=== PATIENT | female | born 1970 | race Caucasian/White ===

== ENCOUNTER 2017-06-19 23:43 | Emergency (ER) ==
[2017-06-20 00:01] VITALS: BP 165/96; TEMP 99.3; BMI 38.1
[2017-06-20] MEDS ORDERED: TRANDATE IVP STA (00:19)
[2017-06-20] MEDS ORDERED: ATIVAN IVP STA (00:20)
[2017-06-20 00:54] LABS: BASOPHILS # (AUTO) 0.1 K/uL (0-0.2); BASOPHILS % (AUTO) 0.7 % (0.0-3.0); EOSINOPHILS # (AUTO) 0.2 K/ul (0.0-0.7); EOSINOPHILS % (AUTO) 2.1 % (0.0-7.0); HEMATOCRIT 44.7 % (37.0-47.0); HEMOGLOBIN 15.7 g/dl (12.0-16.0); IMMATURE GRANULOCYTE % (AUTO) 0.4 % (0.0-5.0); LYMPHOCYTES # (AUTO) 2.5 K/uL (0.60-3.4); LYMPHOCYTES % (AUTO) 23.7 (10.0-50.0); MEAN CORPUSCULAR HEMOGLOBIN 30.8 pg (27.0-31.0); MEAN CORPUSCULAR HGB CONC 35.1 (31.8-35.4); MEAN CORPUSCULAR VOLUME 87.8 fl (81.0-99.0); MONOCYTES # (AUTO) 0.8 K/uL (0.4-2.0); MONOCYTES % (AUTO) 7.5 (0-10); NEUTROPHILS % (AUTO) 65.6; PLATELET COUNT 255 10^3/uL (140-440); RED BLOOD COUNT 5.09 10^6/ul (4.20-5.40); WHITE BLOOD COUNT 10.59 K/ul (4.6-10.2)
[2017-06-20 01:00] LABS: BILIRUBIN,URINE Negative (NEGATIVE); KETONES,URINE Negative (NEGATIVE); LEUKOCYTE ESTERASE ,URINE Negative (NEGATIVE); NITRITE,URINE Negative (NEGATIVE); PROTEIN,URINE Negative (NEGATIVE); URINE, BLOOD 2+ (NEGATIVE)
[2017-06-20 01:05] LABS: ADD URINE MICROSCOPIC YES
[2017-06-20 01:06] LABS: BACTERIA,URINE TRACE (NOT PRESENT)
--- NOTE | 2017-06-20 01:22 | CT ---
EXAM: CT head without contrast. HISTORY: Trauma. Elevated blood pressure. PROCEDURE: Contiguous axial CT images of the head without contrast with coronal and sagittal reforma ts. FINDINGS: There are bilateral earrings with associated artifact which limits the exam. The ventricle s and basal cisterns are normal in size and configuration. No evidence of mass or midline shift. No intracranial hemorrhage or evidence of large vessel infarct. No extra-axial fluid collection. The paranasal sinuses and mastoid air cells are well-aerated. Impression: Negative CT of the head.
[2017-06-20 01:32] LABS: ALANINE AMINOTRANSFERASE 19 U/L (12-78); ALBUMIN 3.2 g/dL (3.4-5.0); ALBUMIN/GLOBULIN RATIO 0.97; ALKALINE PHOSPHATASE 67 U/L (42-98); ANION GAP 14.5; ASPARTATE AMINO TRANSFERASE 13 U/L (15-37); BLOOD UREA NITROGEN 12 mg/dL (7-18); BUN/CREATININE RATIO 14.28; CARBON DIOXIDE 23 mmol/L (21-32); CHLORIDE 106 mmol/L (98-107); CREATINE KINASE 121 U/L; CREATININE 0.84 mg/dL (0.60-1.30); GLUCOSE 123 mg/dL (70-110); POTASSIUM 3.5 mmol/L (3.5-5.10); SODIUM 140 mmol/L (136-145); TOTAL PROTEIN 6.5 g/dL (6.4-8.2)
[2017-06-20 01:33] LABS: CREATINE KINASE MB 1.2 ng/ml (0.0-3.6)
--- NOTE | 2017-06-20 01:54 | ED.PDOC ---
General ED Provider: Dr. JASIEL LYNCH-ER Chief Complaint: Hypertension Stated Complaint: admits to anxiety-- oot and things going "wrong" around the house Time Seen by Physician: 23:50 Mode of Arrival: Walk-In Information Source: Patient, Family Exam Limitations: No limitations [facility] and Triage Documentation Reviewed and Agree: Yes Psychological Complaint Exam - Psychiatric Complaint/Exam Patient Complains Of: Present: Other Symptoms Are: Still present Timing: Constant Episodes Lasting: Seconds Initial Severity: Mild Current Severity: Moderate Character: Present: Fearful, Anxious Aggravating: Reports: Recent stress Associated Signs And Symptoms: Denies: Hostile, Confused, Hallucinating, Paranoid behavior, Sleep disturbance, Appetite change Completed Suicide Risk Factors: None Patient Accompanied By: Family Patient In Custody Of Police: No Social Withdrawal Present: No Social Isolation Present: No Prior Suicide Attempt: No Injury From Prior Suicide Attempt: No Related Surgical History: Reports: None Patient Uncooperative For Exam: No Mood: Present: Anxious Appearance: Present: Clean Thought Process: Present: Logical Insight: Present: Good Memory: Intact Judgement: Normal Danger To Others: No Patient Medically Stable For: Psych evaluation Differential Diagnoses: Anxiety Review of Systems - Review Of Systems Constitutional: Reports: No symptoms Eyes: Reports: No symptoms Ears, Nose, Mouth, Throat: Reports: No symptoms Respiratory: Reports: No symptoms Cardiac: Reports: No symptoms GI: Reports: No symptoms : Reports: No symptoms Musculoskeletal: Reports: No symptoms Skin: Reports: No symptoms Neurological: Reports: Anxiety Endocrine: Reports: No symptoms Hematologic/Lymphatic: Reports: No symptoms All Other Systems: Reviewed and Negative Past Medical History - Past Medical History Previously Healthy: Yes Endocrine: Reports: None Cardiovascular: Reports: None Respiratory: Reports: None Hematological: Reports: None Gastrointestinal: Reports: None Genitourinary: Reports: None Neuro/Psych: Reports: Anxiety Musculoskeletal: Reports: None Cancer: Reports: None Last Menstrual Period: 2014 hyst - Surgical History General Surgical History: Reports: Unknown - Family History Family History: Reports: Unknown - Social History Smoking Status: Current every day smoker, Heavy tobacco smoker Hx Substance Use: No Alcohol Screening: None Lives: With family - Immunizations Tetanus Shot up to Date: Yes Physical Exam - Physical Exam Appearance: Well-appearing Eyes: WIN ENT: Ears normal, Nose normal, Oropharynx normal Neck: Supple Respiratory: Airway patent, Breath sounds clear, Breath sounds equal, Respirations nonlabored Cardiovascular: RRR, Pulses normal, No rub, No murmur GI/: Soft, Nontender, No masses, Bowel sounds normal, No Organomegaly Musculoskeletal: Normal strength, ROM intact, No edema, No calf tenderness Skin: Warm, Dry, Normal color Neurological: Sensation intact Psychiatric: Affect appropriate, Mood appropriate, Anxious Interpretation - Radiology Interpretation Radiology Interpretation By: Radiologist Radiology Results: Negative Exam Interpreted: CT Scan - EKG Interpretation Time of EKG #1: 01:54 Rate: Normal Rhythm: Sinus Ectopy: None [place]: NL ST Segment: Normal Interpretation: nsr Re-Evaluation - Re-Evaluation Time of Re-Evaluation: 02:01 Status: Improved Vital Signs Stable: Yes Pain Level: 0 Appearance: NAD Lungs: Clear Skin: Warm and Dry Neuro: Alert and Oriented X3 CV: RRR Critical Care Note - Critical Care Note Total Time (mins): 0 Course - Course Hematology/Chemistry: 06/20/17 00:52 06/20/17 00:52 Orders, Labs, Meds: Lab Review 06/20/17 06/20/17 06/20/17 00:50 00:52 00:52 WBC 10.59 H RBC 5.09 Hgb 15.7 Hct 44.7 MCV 87.8 MCH 30.8 MCHC 35.1 RDW Coeff of Jeffrey 12.9 Plt Count 255 Immature Gran % (Auto) 0.4 Neut % (Auto) 65.6 Lymph % (Auto) 23.7 [place] % (Auto) 7.5 Eos % (Auto) 2.1 Baso % (Auto) 0.7 Immature Gran # (Auto) 0.0 Neut # 7.0 H Lymph # 2.5 [place] # 0.8 Eos # 0.2 Baso # 0.1 Sodium 140 Potassium 3.5 Chloride 106 Carbon Dioxide 23 Anion Gap 14.5 BUN 12 Creatinine 0.84 Estimated GFR (MDRD) 73.00 BUN/Creatinine Ratio 14.28 Glucose 123 H Calcium 9.0 Total Bilirubin 0.30 AST 13 L ALT 19 Alkaline Phosphatase 67 Total Creatine Kinase 121 CK-MB (CK-2) 1.2 CK-MB (CK-2) % 0.09529 Troponin I < 0.0100 Total Protein 6.5 Albumin 3.2 L Globulin 3.3 Albumin/Globulin Ratio 0.97 TSH 1.511 Free T4 0.98 Urine Color Yellow Urine Clarity Clear Urine pH 6.0 Ur Specific [place] 1.015 Urine Protein Negative Urine Glucose (UA) Negative Urine Ketones Negative Urine Blood 2+ Urine Nitrite Negative Urine Bilirubin Negative Urine Urobilinogen 0.2 Ur Leukocyte Esterase Negative Urine Microscopic RBC 5-10 Ur Squamous Epith Cells 2-5 Urine Bacteria Trace Orders Category Date Time Status EKG-(ED ONLY) Stat CARDIO 06/20/17 00:18 Ordered Orthotist Prosthetist [ED SOCKET PULLER APPLIED] .ONCE EMERGENCY 06/20/17 00:19 Active IV [ED IV/MEDIPORT/POWERPORT] .ONCE EMERGENCY 06/20/17 00:19 Active CBC W/ AUTO DIFF Stat LAB 06/20/17 00:52 Completed COMPREHENSIVE METABOLIC PANEL Stat LAB 06/20/17 00:52 Completed CREATINE KINASE Stat LAB 06/20/17 00:52 Completed FREE T4 (FREE THYROXINE) Stat LAB 06/20/17 00:52 Completed TROPONIN I Stat LAB 06/20/17 00:52 Completed TSH [THYROID STIMULATING HORMONE] Stat LAB 06/20/17 00:52 Completed URINALYSIS C & S IF INDICATED Stat LAB 06/20/17 00:50 Completed 0.9 % Sodium Chloride [Saline Flush] MEDS 06/20/17 00:19 Ordered 1 syr IVF PRN PRN Labetalol HCl [Trandate] MEDS 06/20/17 00:19 Discontinued 20 mg IVP ONCE STA Lorazepam Inj [Ativan] MEDS 06/20/17 00:20 Discontinued 1 mg IVP ONCE STA CT HEAD W/O CONTRAST Stat RADS 06/20/17 00:19 Completed Medications Generic Name Dose Route Start Last Admin Trade Name Freq PRN Reason Stop Dose Admin Sodium Chloride 1 syr 06/20/17 00:19 06/20/17 00:54 Saline Flush IVF 1 syr PRN PRN Administration To flush IV Discontinued Medications Generic Name Dose Route Start Last Admin Trade Name Freq PRN Reason Stop Dose Admin Labetalol HCl 20 mg 06/20/17 00:19 06/20/17 00:54 Trandate IVP 06/20/17 00:20 20 mg ONCE STA Administration Lorazepam 1 mg 06/20/17 00:20 06/20/17 00:54 Ativan IVP 06/20/17 00:21 1 mg ONCE STA Administration Vital Signs: Temp Pulse Resp BP Pulse Ox 06/19/17 23:46 99.3 F 89 20 165/96 H 97 Departure - Departure Time of Disposition: 02:01 Disposition: HOME SELF-CARE Discharge Problem: Anxiety, Hematuria Instructions: Anxiety (ED) Condition: Good Pt referred to PMD for follow-up: Yes Additional Instructions: ativan 1mg q 6hrs prn anxiety#15--see your pcp about the blood in the urine-- very important this is done Allergies/Adverse Reactions: Allergies No Known Allergies Allergy (Verified 06/19/17 23:56) Home Medications: Ambulatory Orders 1 [No Reported Medications] 06/19/17 Disposition Discussed With: Patient, Family Discharge Problem: Hematuria Qualifiers: Hematuria type: unspecified type Qualified Code(s): R31.9 - Hematuria, unspecified
== END 2017-06-20 02:12 | disposition home or self-care (01) ==
LOC: ED 23:43
DX: F41.9 Anxiety disorder, unspecified (principal); R31.9 Hematuria, unspecified; I10 Essential (primary) hypertension; F17.210 Nicotine dependence, cigarettes, uncomplicated
CPT/HCPCS: 36415; 80053; 81001; 82550; 82553; 84439; 84443; 84484; 85025; 93005; 93010; 96374; 96375; 99284

== ENCOUNTER 2018-04-14 00:39 | Observation (INO) ==
[2018-04-14 00:56] VITALS: BMI 40.4
[2018-04-14] MEDS ORDERED: ZOFRAN 4 MG/2 ML IVP STA (01:16)
[2018-04-14] MEDS ORDERED: DILAUDID 2 MG/ML SYRINGE ONE (01:26)
[2018-04-14] MEDS: DILAUDID 2 MG/ML SDV IVP PRN ×4 (01:35→08:28)
--- NOTE | 2018-04-14 02:49 | ED.PDOC ---
General ED Provider: Dr. JASIEL LYNCH-ER Chief Complaint: Back Pain Stated Complaint: my lower back is killing me Time Seen by Physician: 00:45 Mode of Arrival: Walk-In Information Source: Patient, Family Exam Limitations: No limitations [facility] and T[facility] Documentation Reviewed and Agree: Yes Does patient meet sepsis criteria?: No System Inflammatory Response Syndrome: Not Applicable Sepsis Protocol: For patient's 13 years and over: Temp is 96.8 and below OR 101 and greater Pulse >90 BPM Resp >20/minute Acutely Altered Mental Status Are patient's symptoms suggestive of a new infection, such as: -Pneumonia -Skin, Soft Tissue -Endocarditis -UTI -Bone, Joint Infection -Implantable Device -Acute Abdominal Infection -Wound Infection -Meningitis -Blood Stream Catheter Infection -Unknown Musculoskeletal Complaint Exam - Back Pain Complaint/Exam Mechanism of Injury: Reports: No known trauma Onset/Duration: several days Symptoms Are: Still present Timing: Constant Episodes Lasting: Days Initial Severity: Moderate Current Severity: Moderate Location: Reports: Discrete Character: Reports: Dull, Aching Aggravating: Reports: Movements, Lifting, Bending, Walking Alleviating: Reports: None Associated Signs and Symptoms: Reports: Abdominal pain, Flank pain Epidural Abcess Risk Factors: Reports: None Related Surgical History: Reports: None Focal Tenderness: Yes Paraspinal Muscle Tenderness: No Paraspinal Muscle Spasm: No Scoliosis: No Lordosis: No Kyphosis: No SLR Test: Right Negative, Left Negative Hip Motion Testing Pain: Right Negative, Left Negative Focal Weakness: Present: None Focal Sensory Loss: Present: None Gait: Present: Abnormal Differential Diagnoses: Herniated Disk, Renal Colic Review of Systems - Review Of Systems Constitutional: Reports: No symptoms Eyes: Reports: No symptoms Ears, Nose, Mouth, Throat: Reports: No symptoms Respiratory: Reports: No symptoms Cardiac: Reports: No symptoms GI: Reports: No symptoms : Reports: Flank pain Musculoskeletal: Reports: Back pain Skin: Reports: No symptoms Neurological: Reports: No symptoms Endocrine: Reports: No symptoms Hematologic/Lymphatic: Reports: No symptoms All Other Systems: Reviewed and Negative Past Medical History - Past Medical History Previously Healthy: Yes Endocrine: Reports: None Cardiovascular: Reports: None Respiratory: Reports: None Hematological: Reports: None Gastrointestinal: Reports: None Genitourinary: Reports: None Neuro/Psych: Reports: Anxiety Musculoskeletal: Reports: None Cancer: Reports: None Last Menstrual Period: HYSTERECTOMY 2013 - Surgical History General Surgical History: Reports: Unknown - Family History Family History: Reports: Unknown - Social History Smoking Status: Current every day smoker, Heavy tobacco smoker Hx Substance Use: No Alcohol Screening: None - Immunizations Tetanus Shot up to Date: Yes Physical Exam - Physical Exam Appearance: Well-appearing, No pain distress, Well-nourished Eyes: WIN, EOMI, Conjunctiva clear ENT: Ears normal, Nose normal, Oropharynx normal Neck: Supple Respiratory: Airway patent, Breath sounds clear, Breath sounds equal, Respirations nonlabored Cardiovascular: RRR GI/: Soft, Nontender, No masses, Bowel sounds normal, No Organomegaly Musculoskeletal: Normal strength Skin: Warm Neurological: Sensation intact Psychiatric: Affect appropriate, Mood appropriate, Anxious Interpretation - Radiology Interpretation Radiology Interpretation By: Radiologist Radiology Results: Negative Exam Interpreted: CT Scan - EKG Interpretation Time of EKG #1: 02:50 Rate: Normal Rhythm: Sinus Ectopy: None [place]: NL ST Segment: Normal Interpretation: nsr Physician Notification - Case Discussed Physician Notified: dr [email or web address] Time of Notification: 03:56 Critical Care Note - Critical Care Note Total Time (mins): 0 Course - Course Hematology/Chemistry: 04/14/18 01:25 04/14/18 01:25 Orders, Labs, Meds: Lab Review 04/14/18 04/14/18 04/14/18 01:25 01:25 02:40 WBC 13.08 H RBC 5.15 Hgb 15.9 Hct 45.4 MCV 88.2 MCH 30.9 MCHC 35.0 RDW Coeff of [place] 13.3 Plt Count 303 Immature Gran % (Auto) 0.5 Neut % (Auto) 77.3 Lymph % (Auto) 12.8 [place] % (Auto) 7.4 Eos % (Auto) 1.5 Baso % (Auto) 0.5 Immature Gran # (Auto) 0.1 Neut # (Auto) 10.1 H Lymph # (Auto) 1.7 [place] # (Auto) 1.0 Eos # (Auto) 0.2 Baso # (Auto) 0.1 Sodium 135 L Potassium 4.1 Chloride 99 Carbon Dioxide 25 Anion Gap 15.1 BUN 13 Creatinine 0.84 Estimated GFR (MDRD) 73.00 BUN/Creatinine Ratio 15.47 Glucose 155 H Calcium 9.2 Total Bilirubin 0.5 AST 29 ALT 44 Alkaline Phosphatase 67 Total Protein 7.4 Albumin 3.6 Globulin 3.8 Albumin/Globulin Ratio 0.95 Amylase 22 L Lipase 18 Urine Color Yellow Urine Clarity Clear Urine pH 6.5 Ur Specific [place] 1.020 Urine Protein Negative Urine Glucose (UA) Negative Urine Ketones Negative Urine Blood 1+ Urine Nitrite Negative Urine Bilirubin Negative Urine Urobilinogen 0.2 Ur Leukocyte Esterase Negative Urine Microscopic RBC 2-5 Ur Squamous Epith Cells 10-20 Orders Category Date Time Status EKG-(ED ONLY) Stat CARDIO 04/14/18 01:14 Completed IV [ED IV/MEDIPORT/POWERPORT] .ONCE EMERGENCY 04/14/18 01:14 Active AMYLASE Stat LAB 04/14/18 01:25 Completed CBC W/ AUTO DIFF Stat LAB 04/14/18 01:25 Completed COMPREHENSIVE METABOLIC PANEL Stat LAB 04/14/18 01:25 Completed LIPASE Stat LAB 04/14/18 01:25 Completed URINALYSIS C & S IF INDICATED Stat LAB 04/14/18 02:40 Completed 0.9 % Sodium Chloride [Saline Flush] MEDS 04/14/18 01:14 Ordered 1 syr IVF PRN PRN Hydromorphone HCl [Dilaudid 0.5 mg/0.5 ml Syringe] MEDS 04/14/18 03:03 Discontinued 1 mg .ROUTE .STK-MED ONE Hydromorphone HCl [Dilaudid 2 mg/ml Sdv] MEDS 04/14/18 01:16 Ordered 1 mg IVP Q1HR PRN Hydromorphone HCl/Pf [Dilaudid 2 mg/ml Syringe] MEDS 04/14/18 01:26 Discontinued 2 mg .ROUTE .STK-MED ONE Ondansetron HCl/Pf [Zofran 4 mg/2 ml] MEDS 04/14/18 01:16 Discontinued 4 mg IVP ONCE STA CT ABDOMEN/PELVIS WO CONTRAST Stat RADS 04/14/18 01:[address] LUMBAR SPINE W/O CONTRAST Stat RADS 04/14/18 01:15 Completed Medications Generic Name Dose Route Start Last Admin Trade Name Freq PRN Reason Stop Dose Admin Hydromorphone HCl 1 mg 04/14/18 01:16 04/14/18 03:06 Dilaudid 2 Mg/Ml Sdv IVP 1 mg Q1HR PRN Administration Abdominal Pain Sodium Chloride 1 syr 08/20/18 01:14 Saline Flush IVF PRN PRN To flush IV Discontinued Medications Generic Name Dose Route Start Last Admin Trade Name Dmitry PRN Reason Stop Dose Admin Ondansetron HCl 4 mg 04/14/18 01:16 04/14/18 01:35 Zofran 4 Mg/2 Ml IVP 04/14/18 01:17 4 mg ONCE STA Administration Vital Signs: Temp Pulse Resp BP Pulse Ox 04/14/18 00:40 98.1 F 86 24 167/102 H 98 Departure - Departure Time of Disposition: 03:56 Disposition: PLACED OBSERVATION Discharge Problem: Low back pain potentially associated with radiculopathy Instructions: Lumbar Radiculopathy (ED) Condition: Good Pt referred to PMD for follow-up: Yes IPMP verified?: No Allergies/Adverse Reactions: Allergies No Known Allergies Allergy (Verified 04/14/18 00:56) Home Medications: Ambulatory Orders Cyclobenzaprine HCl [Flexeril] 10 mg PO DAILY PRN 04/14/18 Lisinopril/Hydrochlorothiazide [Lisinopril-Hctz 10-12.5 mg Tab] 10 - 12.5 mg PO DAILY 04/14/18 Meloxicam 15 mg PO DAILY 04/14/18 Prednisone 10 mg PO DAILY 04/14/18 Transfer Form Completed: No Disposition Discussed With: Patient, Family
[2018-04-14] MEDS ORDERED: DILAUDID 0.5 MG/0.5 ML SYRINGE ONE (03:03)
--- NOTE | 2018-04-14 03:12 | CT ---
Exam: CT of the abdomen and pelvis without contrast History: Left-sided abdomen and back pain Technique: [address] of the abdomen and pelvis without intravascular contrast FINDINGS: The lung bases show bilateral dependent atelectasis. No significant liver abnormality. The adrenals, pancreas and spleen are unremarkable. The stomach and hiatus are unremarkable.Prior cholec ystectomy. Kidneys and proximal collecting system are unremarkable. The appendix is normal. Bowel loo ps demonstrate normal caliber. No inflamatory change seen in the mesentery or retroperitoneum. Vascul ar structures appear normal by noncontrast CT. Fat containing umbilical hernia without complication. Abdominal wall defect measuring 1.4 cm. Colonic diverticulosis of the sigmoid. No pelvic fat inflammation. Multiple cysts of the left ovary . Prior hysterectomy. Normal urinary bladder. Contrast accumulation in the urinary bladder from a prior study which is unavailable. No acute findings of the skeleton. Impression: 1. No inflammatory process, bowel or urinary obstruction is seen. 2. Colonic diverticulosis without acute diverticulitis
--- NOTE | 2018-04-14 03:16 | CT ---
Exam: CT lumbar spine without contrast History: Abdomen and back pain Technique: [address] of the lumbar spine with multiplanar reformations FINDINGS: Lumbar spine shows normal alignment. Vertebral body height is maintained. No fracture li cesilia or suspicious bony lesions. No immediate paravertebral soft tissue abnormalities. The sacrum is intact. T12-L1: Normal L1-L2: Normal L2-L3: Normal L3-L4: Normal L4-L5: Facet arthropathy change without central canal narrowing. Mild right foraminal narrowing. N o left foraminal narrowing. L5 S1: Facet arthropathy changes without central canal narrowing no foraminal stenosis. Impression: 1. Low grade degenerative change of the lumbar spine. No acute abnormalities.
[2018-04-14] MEDS ORDERED: MORPHINE 2 MG/ML SYRINGE IVP PRN (04:03)
[2018-04-14] MEDS ORDERED: ZOFRAN 4 MG/2 ML IVP PRN (04:03)
[2018-04-14] MEDS: DECADRON 4 MG/ML SDV IVP SCH ×3 (05:13→22:13)
[2018-04-14] MEDS: SODIUM CHLORIDE 1,000 ML IV SCH ×2 (05:13→22:04)
[2018-04-14] MEDS: LOVENOX SUBCUT SCH (08:35)
[2018-04-14] MEDS: HYDROCHLOROTHIAZIDE PO SCH (08:36)
[2018-04-14] MEDS: ZESTRIL PO SCH (08:36)
[2018-04-14] MEDS: MOBIC PO SCH (08:37)
[2018-04-14] MEDS: FLEXERIL PO PRN (08:37)
[2018-04-14] MEDS ORDERED: DILAUDID 2 MG/ML SDV IVP PRN (08:42)
[2018-04-14] MEDS ORDERED: NON-FORMULARY MEDICATION (Meloxicam [Meloxicam] 15 MG) PO SCH (09:00)
[2018-04-14] MEDS: NICODERM 21 MG TD SCH (11:34)
[2018-04-14] MEDS: TORADOL IVP SCH ×3 (11:35→17:39)
--- NOTE | 2018-04-14 12:27 | MRI ---
EXAM: Lumbar spine MRI without contrast. HISTORY: Low back pain with radiculopathy. COMPARISON: Lumbar spine CT scan 04/14/2018. TECHNIQUE: Multiplanar, multisequence MR images were acquired lumbar spine without contrast. FINDINGS: Conus medullaris ends at L1 and has normal morphology and signal intensity. The lumbar ve rtebra are normal in height, AP alignment and intrinsic bone marrow signal. A small well circumscrib ed bright T1 and T2, dark STIR stippled lesion is present in the right L2 vertebra, most consistent w ith a benign intraosseous hemangioma. Benign intraosseous hemangiomas are also present in the right iliac bone and first sacral segment. There is minor lumbar ventral spondylosis with minor modic type 2 changes along the left anterolateral inferior endplate of L1 and along the anterior superior endpl ates of L3, L4 and L5. There is mild disc space narrowing and disc desiccation at L5-S1. The partially visualized liver, spleen, adrenal glands and kidneys are unremarkable. There are no pa ravertebral masses. L1-2: The intervertebral disc is normal. L2-3: The intervertebral disc is normal. L3-4: The intervertebral disc is normal. There is a small synovial cyst along the posterior inferior left facet joint. L4-5: There is a minor disc bulge that is asymmetric to the left which minimally narrows the inferio r left neural foramen and mild bilateral hypertrophic facet arthropathy and ligamentum flavum hypertr ophy. There is no central canal stenosis. L5-S1: There is a minor posterior disc bulge with a small more focal central component or small cent ral disc protrusion and focal faint bright T1 and T2 signal annular calcification or ossification. T here is mild bilateral hypertrophic facet arthropathy and ligamentum flavum hypertrophy, greater on t he right. There is no central canal stenosis or foraminal stenosis. IMPRESSION: 1. Mild lower lumbar hypertrophic facet arthropathy and small posterior disc bulge L5-S1 with more f ocal central component or small disc protrusion. 2. No pars interarticularis defects, central canal stenosis or significant foraminal stenosis.
--- NOTE | 2018-04-14 14:41 | MRI ---
EXAM: Thoracic spine MRI without contrast. HISTORY: Thoracic spine pain. COMPARISON: Lumbar spine MRI 04/14/2018. TECHNIQUE: Multiplanar, multisequence MR images were acquired of the thoracic spine without contrast . FINDINGS: The thoracic cord has normal morphology and no syrinx. No abnormal areas of bright STIR s ignal are identified. However, there is decreased spatial contrast resolution of subtle STIR signal abnormalities in the cord may be missed. A 12 rib-bearing thoracic vertebra are present. The thorac ic vertebra are generally normal in height, AP alignment and intrinsic bone marrow signal. At T9, th ere is a mildly lobular hyperintense T1 and T2, dark STIR signal 9 mm AP by 5 mm TX by 11 mm CC lesio n in the right vertebral body that extends to the superior endplate. The appearance is nonspecific a nd is most consistent with a nonaggressive primary osseous lesion. Canal diameter is developmentally normal. However, there is mildly prominent dorsal epidural fat from T3-4 to T8-9. There is degenera tive spondylosis of the cervical spine. The partially visualized liver, spleen, adrenal glands and upper poles of both kidneys are unremarkab le. T1-2, T2-3, T3-4, T4-5, T5-6: The intervertebral discs are normal. There is no central canal stenos is or foraminal stenosis. T6-7: There is a minor left paracentral bony ridge and ventral spondylosis with modic type 1 anterio r endplate changes. There is no central canal stenosis or foraminal stenosis. T7-8: There is a minor left dorsal spondylotic ridge with a more focal left paracentral component th at mildly indents the left ventral cord. On the axial sections, there is a possible small left parac entral disc protrusion. There is no central canal stenosis or foraminal stenosis. T8-9: There is a minor posterior disc bulge that is asymmetric to the left. There is no central can al stenosis or foraminal stenosis. T9-10, T10-11, T11-12, T12-L1: The intervertebral discs are normal. There is no central canal steno sis or foraminal stenosis. IMPRESSION: 1. Mild thoracic degenerative spondylosis. 2. No acute thoracic fractures or central canal stenosis.
--- NOTE | 2018-04-14 14:55 | RS.PTINEVL ---
Subjective - Patient information Date of Evaluation: 04/14/18 Date of Arrival on Unit: 04/14/18 Admitted From:: Home Diagnosis: low back pain with radiculopathy Usual Living Arrangement: With Others Living Arrangement Comments: Currently going through a divorce; 3 adult children living at home with patient Home Environment: House, Stairs (few) Medical History Comments:: anxiety Surgical History: Hysterectomy Medications: see chart Subjective Information/ Patient Comments:: pt initially states she has pain across top of shlds as well as across low back. Later in eval pt states only has pain in L lower thoracic spine then states is in center of spine in mid thoracic spine. - Level of function Prior to this admission, the patient could do the following:: Independent Selfcare, Independent ADL's, Independent Ambulation, Drive Current Level of Function: Independent Current Equipment Used at Home: none Pain Assessement - Location thoracic spine Description: Aching Intensity: 7 Pain Behavior: Facial Grimacing Pain Aggravating Factors: Changing Position, Exercise/Activity, Standing, Walking, Stair Climbing Pain Alleviating Factors: Medication Interventions - Objective Patient Orientation: Person, Place, Time, Situation Current Interventions: IV's Observation: pt seen lying sup in bed. Range of Motion - ROM Right Upper Extremity AROM: WFL's Left Upper Extremity AROM: WFL's Right Lower Extremity AROM: WFL's Left Lower Extremity AROM: WFL's Muscle Strength - Muscle Strength Right Upper Extremity Strength: Mild Weakness (BUE 4+/5) Left Upper Extremity Strength: Mild Weakness (BUE 4+/5) Right Lower Extremity Strength: Mild Weakness (hip flex 4+/5, knee flex/ext 5/5 , ankle Df/PF 5/5) Left Lower Extremity Strength: Mild Weakness (hip flex 4+/5, knee flex/ext 5/5, ankle Df/PF 5/5) Sensation - Sensation Right Upper Extremity Sensation: Impaired Left Upper Extremity Sensation: Impaired Right Lower Extremity Sensation: Intact/Normal Left Lower Extremity Sensation: Intact/Normal Comments: reports n/t B hands Palpation Palpation Findings: Tenderness Comments:: tenderness noted in mid thoracic spine, no definite trigger points noted. Balance - Sitting Balance and Reactions Static Sitting Balance: Normal Dynamic Sitting Balance: Normal - Standing Balance and Reactions Static Standing Balance: Normal Dynamic Standing Balance: Normal Functional Mobility - Bed Mobility Rolling R/L: Independent Scooting: Independent Supine to Sit: Independent Sit to Supine: Independent - Transfers Sit to Stand: Supervision Stand to Sit: Supervision - Safety Awareness Safety Awareness: Good VANCE INDEX SCORE: n/a Ambulation - Ambulation Assistive Device Used: Gait belt Orthotic/Prosthetic Device: No Distance: 30ft Assistance needed with Ambulation: Independent Gait Deviations: No Deviations/Normal Ambulation Comments: pt amb with no LOB without AD. Factors Affecting Ambulation: Pain Treatment time - Time with patient Length of Evaluation: 24 Total treatment time: 24 Patient Education - Education Patient Education: Activity Modification, Education of Plan of Care Teaching Recipient: Patient Teaching Methods: Discussion Comments: discussion with patient regarding posture, and POC. Assessment - Assessment Problem List:: Requires training/education, Decreased safety/Risk of falls, Weakness, Pain limits previous level of function Rehab Potential: Good Further Therapy Indicated?: Yes Candidate for Swing Bed for Therapy Services?: pt not a candidate for swing bed Evaluation Complexity: HISTORY: Low (LBP), EXAM OF BODY SYSTEMS: Low (pain, strength), CLINICAL PRESENTATION: Low, CLINICAL DECISION MAKING: Low Short Term Goals GOAL #1: pt independent with HEP Goal to be met by: 04/15/18 GOAL #2: pt with pain < 7/10 at rest Goal to be met by: 04/15/18 Shelter Goals GOAL #1: pt with pain <7/10 with activity Goal to be met by: 04/15/18 Plan Plan of Care: Therapeutic EX Modalities: Cold Pack/Cryotherapy, Ultrasound, Electrical Stimulation Frequency of Treatment: 1-2 X day, as tolerated Duration of Treatment: 1-2 days Anticipated Discharge Destination: Home Treatment Diagnosis (ICD 10 Codes): thoracic pain M54.6. lumbar pain M 54.5 Has the Physician been added for Co-signature?: Yes
[2018-04-15] MEDS: TORADOL IVP SCH ×3 (01:15→13:33)
[2018-04-15] MEDS: FLEXERIL PO PRN (04:12)
[2018-04-15] MEDS: DECADRON 4 MG/ML SDV IVP SCH ×2 (04:41→13:33)
[2018-04-15] MEDS: HYDROCHLOROTHIAZIDE PO SCH (08:40)
[2018-04-15] MEDS: NICODERM 21 MG TD SCH (08:41)
[2018-04-15] MEDS: MOBIC PO SCH (08:41)
[2018-04-15] MEDS: ZESTRIL PO SCH (08:41)
[2018-04-15] MEDS: LOVENOX SUBCUT SCH (08:44)
[2018-04-15 14:18] VITALS: BP 142/88; TEMP 97.5
--- NOTE | 2018-04-15 14:53 | MRI ---
EXAM: MRI brain without and with IV contrast. DATE: 15 April 2018. HISTORY: Tingling in the upper and lower extremities. TECHNIQUE: Sagittal T1W pre and postcontrast, axial T2W, axial FLAIR, axial T1W pre and postcontrast , axial DWI, coronal T1W postcontrast, and coronal T2W GRE sequences of the brain were obtained using 1.2 Jannie magnet. CONTRAST: Omniscan - 20 ml IV. COMPARISON: CT head 20 June 2017. FINDINGS: The ventricles, cisterns, and subarachnoid spaces are normal in size and configuration. N o midline shift, mass effect or abnormal extra-axial fluid collection is apparent. No acute infarct, hemorrhage or enhancing neoplasm is identified. No abnormal contrast enhancement is identified in t he brain, meninges or dura. Minimal T2W/IR hyperintensity is observed in the white matter abutting t he anterior horn/body of each lateral ventricle. The 3 mm T2W/FLAIR bright, non-enhancing focus is s een within the right frontal darling radiata on axial image #15. Artifact vs minimal IR hyperintensit y is demonstrated in the posterosuperior right parietal gyrus on axial image #20. The leos - white m atter differentiation is normal. No migration or diverticulation abnormality is identified. The nelida gdala, hippocampus, and parahippocampal gyri are similar bilaterally. The 7th/8th cranial nerve comp lexes, cerebellopontine angles, brainstem, and visible cervical spinal cord are normal. There is no cerebellar tonsillar ectopia. The pituitary gland is slightly small in size, without distinct neopla sm. Corpus callosum is normal in size and configuration. Flow voids are present in the major intrac ranial arteries and in the dural venous sinuses. No aneurysm, AVM or dural venous sinus thrombosis i s apparent. Small amount of fluid signal within the anterior aspect of each optic nerve sheath is of uncertain clinical significance. No other orbit abnormality is identified. Right mastoid air cells are unremarkable. Small number of inferior left mastoid air cells have typical pattern of T2W brigh t, T1W intermediate signal without abnormal enhancement. A small (8.6 x 6 mm) T2W bright, T1W interm ediate signal focus at the inferolateral aspect of the left maxillary sinuses consistent with a reten tion cyst. There is no acute sinusitis. Rightward nasoseptal deviation is seen at the level of the middle turbinates. No neck mass or lymphadenopathy is detected. No calvarial neoplasm or acute frac ture is evident. IMPRESSIONS: 1. No acute infarct, hemorrhage, enhancing neoplasm or hydrocephalus. 2. Minimal cerebral leukomalacia - likely small vessel disease. 3. Slightly small pituitary gland. No pituitary neoplasm. 4. Minimal left mastoid air cell mucosal disease. 5. Left maxillary sinus small retention cyst. 6. Rightward nasoseptal deviation.
--- NOTE | 2018-04-16 08:57 | DS ---
DATE OF SERVICE: 04/14/18 CHIEF COMPLAINT: Severe back pain HISTORY OF PRESENT ILLNESS: This is a 47 year old female who was evaluated at the [facility] a few days ago for severe epigastric pain and the back pain. CT abdomen and pelvis negative. Came to the emergency room and was seen by Dr. Rosales in the emergency room. The patient was in excruciating pain, not able to stand and not able to sit. Left sided abdominal pain. CT chest and abdomen are negative. As the patient was still hurting and came to the emergency room the blood pressure 167/102 Dr. Rosales gave the pain medication and was still hurting and at that time the patient was admitted to the hospital for observation for intractable back pain and hypertension uncontrolled. REVIEW OF SYSTEMS: CONSTITUTIONAL: No fever, no chills. HEENT: Normal. Headache. ENDOCRINE: No weight gain; no weight loss. CVS: No chest pain. No PND, no orthopnea. No shortness of breath. No PND, no orthopnea. Elevated blood pressure. RESPIRATORY: No cough, no congestion. No hemoptysis. GI: No nausea, no vomiting. No abdominal pain. No melena. : No hematuria. No polyuria. MUSCULOSKELETAL: No joint swelling. Back pain. PSYCHIATRIC: Not anxious. No depression. No suicidal thoughts. No homicidal thoughts. SKIN: Intact, no open lesions. PAST MEDICAL HISTORY: Hypertension History of pneumonia GERD Osteoarthritis PAST SURGICAL HISTORY: Cholecystectomy Bladder tie up PERSONAL HISTORY: The patient does not smoke or drink. No alcohol FAMILY HISTORY: Prostate cancer MEDICATIONS: Meloxicam Lisinopril Prednisone Flexeril ALLERGIES: No known drug allergies PHYSICAL EXAMINATION: V/S: Blood pressure 145/85, respiratory rate 20, heart rate 76, temperature 97.4 with saturation 95% on room air. HEENT: Atraumatic, normocephalic. No scleral icterus. Pallor positive. Mucosa dry. NECK: Supple. No JVD, no bruit. No lymphadenopathy. No thyromegaly. HEART: S1, S2 normal. No murmur. No cyanosis or clubbing. No ascites. LUNGS: Clear to auscultation. No rales or rhonchi. ABDOMEN: Soft, Epigastric tenderness is present. Bowel sounds are active. No CVA tenderness. No rigidity or guarding. EXTREMITIES: No pedal edema. No cyanosis or clubbing MUSCULOSKELETAL: Normal joints, no swelling. Paraspinal tenderness in the mid thoracic area and between the shoulder blades. NEUROLOGIC: The patient is awake and alert. SKIN: Intact; no open lesions. LYMPHATIC: No lymph nodes palpable. LABS: WBC 13.08, hgb 15.9, hct 45.4, plt count 303, sodium 145, potassium 4.1, chloride 99, bicarb 25, BUN 13, creatinine 0.84 and glucose 155. Urine negative. ASSESSMENT: 1. Intractable back pain 2. Uncontrolled hypertension 3. Obesity PLAN: 1. Admit patient to observation 2. MRI of the thoracic spine 3. Tylenol and Dilaudid PRN 4. IV fluids 5. Out of bed to chair 6. Activity as tolerated TIME SPENT: MORE THAN 65 minutes MTDD
== END 2018-04-15 16:53 | disposition home or self-care (01) ==
LOC: ED 00:39 → INTOOBSV 04:27 → MEDSURG A 04:27 → UNDOADMOB 04:27 → MEDSURG A 04:27
PROVIDERS: ADMIT Emergency Medicine; ATTEND Emergency Medicine
DX: M54.9 Dorsalgia, unspecified (principal); R10.9 Unspecified abdominal pain; I16.0 Hypertensive urgency; E66.9 Obesity, unspecified
CPT/HCPCS: 36415; 80053; 81001; 82150; 83036; 83690; 85025; 93005; 93010; 96361; 96374; 96375; 97802; 99285

== ENCOUNTER 2018-04-18 19:36 | Observation (INO) ==
[2018-04-18] MEDS ORDERED: DILAUDID 0.5 MG/0.5 ML SYRINGE IVP STA (19:42)
[2018-04-18] MEDS ORDERED: SODIUM CHLORIDE 1,000 ML IV STA (19:42)
[2018-04-18] MEDS ORDERED: ZOFRAN 4 MG/2 ML IVP STA (19:42)
[2018-04-18] MEDS ORDERED: DUONEB NEB STA (19:48)
--- NOTE | 2018-04-18 20:51 | CT ---
EXAM: CT angiogram of the chest with contrast HISTORY: Chest pain TECHNIQUE: Helical imaging of the chest was performed following the intravenous administration of co ntrast. 3 mm thin axial images and coronal and sagittal reconstructions and rotated 3-D reconstructi ons were provided for interpretation. FINDINGS: No definite filling defects are identified within the branches of the pulmonary arteries. The central pulmonary arteries are normal. The heart is normal size. No mediastinal abnormalities are seen. There is no consolidation. No lytic or blastic lesions are seen within the osseous struct ures. The patient has had previous cholecystectomy. IMPRESSION: There is no acute pulmonary embolism.
--- NOTE | 2018-04-18 20:59 | CT ---
EXAM: CT abdomen pelvis with contrast TECHNIQUE: Helical axial CT of the abdomen and pelvis was performed with contrast with coronal and s agittal reconstructions. COMPARISON: CT of the abdomen pelvis performed 04/14/[address] chest from today HISTORY: Abdominal pain FINDINGS: There is no acute intervening abnormality. Specifically there is no mesenteric inflammation, free air , free fluid or bowel wall thickening or edema or pathologic lymph nodes or obstruction or ileus. The liver, spleen, pancreas,and adrenal glands show no acute abnormality. There is fatty infiltration of the liver. Lung bases are well-aerated. There is no hiatal hernia. There has been prior cholecys tectomy. There is no biliary or pancreatic ductal dilatation. There are no suspicious renal masses or large cysts and no hydronephrosis. There are no kidney stones . Both ureters demonstrate normal course and caliber. There is no filling defect in the urinary blad margie. There are bilateral ovarian cysts left greater than right. There has been prior hysterectomy. The appendix is not definitely seen however there is no inflammation in the right lower quadrant. The re are there are non inflamed colonic diverticula. There is a fat-containing umbilical hernia. The a lisa is normal with no aneurysm or calcific atherosclerosis. There are no acute osseous abnormalities . There is a vascular malformation seen in the posterior right flank. IMPRESSION: 1. No acute intervening abnormality. Specifically there is no free air free fluid or bowel wall thi ckening or edema. 2. Fat-containing umbilical hernia. 3. Fatty liver and prior cholecystectomy. 4. Ovarian cysts. 5. Right flank vascular malformation.
--- NOTE | 2018-04-18 21:15 | ED.PDOC ---
General ED Provider: Dr. JASIEL LYNCH-ER Chief Complaint: Shortness of Air Stated Complaint: im sob and having chest pain Time Seen by Physician: 19:40 Mode of Arrival: Walk-In Information Source: Patient, Family Exam Limitations: No limitations Primary Care Provider: CECI HENRIQUEZ-[facility] Nursing and Triage Documentation Reviewed and Agree: Yes Does patient meet sepsis criteria?: No System Inflammatory Response Syndrome: Not Applicable Sepsis Protocol: For patient's 13 years and over: Temp is 96.8 and below OR 101 and greater Pulse >90 BPM Resp >20/minute Acutely Altered Mental Status Are patient's symptoms suggestive of a new infection, such as: -Pneumonia -Skin, Soft Tissue -Endocarditis -UTI -Bone, Joint Infection -Implantable Device -Acute Abdominal Infection -Wound Infection -Meningitis -Blood Stream Catheter Infection -Unknown Cardiovascular Complaint Exam - Chest Pain Complaint/Exam Onset: Gradual Duration: 24 hrs Symptoms Are: Still present Timing: Constant Initial Severity: Mild Current Severity: Moderate Location: Reports: Diffuse Pain Radiates: Reports: Back Character: Reports: Dull, Aching Alleviating: Reports: None Associated Signs and Symptoms: Reports: Back pain, Abdominal pain History of Healthcare-Acquired Pneumonia: Reports: No AMI/ACS Risk Factors: Reports: Sedentary, Obesity TAD Risk Factors: Reports: None Pulmonary Embolism Risk Factors: Reports: None Prior Care for this Complaint: No Recent Stress Test: No Recent Echo/LV Function: No JVD Present: No Subcutaneous Emphysema Present: No Diminshed Breath Sounds: Yes Reproducible Chest Wall Pain: No Bilateral Pulses Present: Yes Unequal Pulses Noted: No Quality Indicator For Non-Traumatic Chest Pain/Syncope: EKG Performed Review of Systems - Review Of Systems Constitutional: Reports: No symptoms Eyes: Reports: No symptoms Ears, Nose, Mouth, Throat: Reports: No symptoms Respiratory: Reports: No symptoms Cardiac: Reports: No symptoms GI: Reports: No symptoms : Reports: No symptoms Musculoskeletal: Reports: No symptoms Skin: Reports: No symptoms Neurological: Reports: No symptoms Endocrine: Reports: No symptoms Hematologic/Lymphatic: Reports: No symptoms All Other Systems: Reviewed and Negative Past Medical History - Past Medical History Previously Healthy: Yes Endocrine: Reports: None Cardiovascular: Reports: None Respiratory: Reports: None Hematological: Reports: None Gastrointestinal: Reports: None Genitourinary: Reports: None Neuro/Psych: Reports: Anxiety Musculoskeletal: Reports: None Cancer: Reports: None Last Menstrual Period: HYSTERECTOMY - Surgical History General Surgical History: Reports: Unknown - Family History Family History: Reports: Unknown - Social History Smoking Status: Current every day smoker, Heavy tobacco smoker Hx Substance Use: No Alcohol Screening: None - Immunizations Tetanus Shot up to Date: Yes Physical Exam - Physical Exam Appearance: Well-appearing, No pain distress, Well-nourished Pain Distress: Moderate Eyes: WIN, EOMI, Conjunctiva clear ENT: Ears normal, Nose normal, Oropharynx normal Neck: Supple Respiratory: Airway patent, Breath sounds clear, Breath sounds equal, Respirations nonlabored Cardiovascular: RRR, Pulses normal, No rub, No murmur GI/: Soft, Nontender, No masses, Bowel sounds normal, No Organomegaly Musculoskeletal: Normal strength, ROM intact, No edema, No calf tenderness Skin: Warm, Dry, Normal color Neurological: Sensation intact, Motor intact, Reflexes intact, Cranial nerves intact, Alert, Oriented Psychiatric: Affect appropriate, Mood appropriate, Anxious Interpretation - Radiology Interpretation Radiology Interpretation By: Radiologist Radiology Results: Negative Exam Interpreted: CT Scan - EKG Interpretation Time of EKG #1: 21:14 Rate: Normal Rhythm: Sinus Ectopy: None [place]: NL ST Segment: Normal Interpretation: nsr Re-Evaluation - Re-Evaluation Time of Re-Evaluation: 21:15 Status: Improved Vital Signs Stable: Yes Pain Level: 1 Appearance: NAD Lungs: Clear Skin: Warm and Dry Neuro: Alert and Oriented X3 CV: RRR Physician Notification - Case Discussed Physician Notified: dr jerome Time of Notification: 21:15 Critical Care Note - Critical Care Note Total Time (mins): 30 Course - Course Hematology/Chemistry: 04/18/18 19:40 04/18/18 19:40 Orders, Labs, Meds: Lab Review 04/18/18 04/18/18 04/18/18 19:37 19:40 19:40 WBC 16.80 H RBC 5.00 Hgb 15.3 Hct 44.1 MCV 88.2 MCH 30.6 MCHC 34.7 RDW Coeff of Jeffrey 13.5 Plt Count 301 Immature Gran % (Auto) 1.4 Neut % (Auto) 60.8 Lymph % (Auto) 27.0 Williams % (Auto) 8.0 Eos % (Auto) 2.3 Baso % (Auto) 0.5 Immature Gran # (Auto) 0.2 Neut # (Auto) 10.2 H Lymph # (Auto) 4.5 H Williams # (Auto) 1.4 Eos # (Auto) 0.4 Baso # (Auto) 0.1 Puncture Site Lr O2 Saturation 96.0 ABG pH 7.426 ABG pCO2 40.3 ABG pO2 77.0 L ABG HCO3 26.5 H ABG Total CO2 28 ABG Base Excess 2 Karson Test + FiO2 % 21.0 Sodium 136 Potassium 3.9 Chloride 101 Carbon Dioxide 24 Anion Gap 14.9 BUN 22 H Creatinine 0.80 Estimated GFR (MDRD) 77.00 BUN/Creatinine Ratio 27.50 Glucose 130 H Calcium 9.4 Total Bilirubin 0.5 AST 15 ALT 30 Alkaline Phosphatase 56 Total Creatine Kinase 35 Troponin I < 0.0100 Total Protein 6.7 Albumin 3.3 L Globulin 3.4 Albumin/Globulin Ratio 0.97 Amylase 26 Lipase 23 Orders Category Date Time Status ABG DRAW REQUEST Stat CARDIO 04/18/18 19:38 Completed EKG-(ED ONLY) Stat CARDIO 04/18/18 19:38 Completed NEBULIZER TREATMENT Stat CARDIO 04/18/18 19:48 Completed NPO REMINDER: IMAGING ONCE CARE 04/18/18 19:43 Completed ED DOCUMENT RESTORER APPLIED .ONCE EMERGENCY 04/18/18 19:39 Active IV [ED IV/MEDIPORT/POWERPORT] .ONCE EMERGENCY 04/18/18 19:39 Active ABG Stat LAB 04/18/18 19:37 Completed AMYLASE Stat LAB 04/18/18 19:40 Completed CBC W/ AUTO DIFF Stat LAB 04/18/18 19:40 Completed COMPREHENSIVE METABOLIC PANEL Stat LAB 04/18/18 19:40 Completed CREATINE KINASE Stat LAB 04/18/18 19:40 Completed LIPASE Stat LAB 04/18/18 19:40 Completed TROPONIN I Stat LAB 04/18/18 19:40 Completed 0.9 % Sodium Chloride [Saline Flush] MEDS 04/18/18 19:39 Ordered 1 syr IVF PRN PRN Hydromorphone HCl [Dilaudid 0.5 mg/0.5 ml Syringe] MEDS 04/18/18 19:42 Discontinued 0.5 mg IVP ONCE STA Ipratropium/Albuterol Neb [Duoneb] MEDS 04/18/18 19:48 Discontinued 1 vial NEB ONCE STA Ondansetron HCl/Pf [Zofran 4 mg/2 ml] MEDS 04/18/18 19:42 Discontinued 4 mg IVP ONCE STA Sodium Chloride 0.9% [Sodium Chloride] 1,000 ml MEDS 04/18/18 19:42 Active IV 100 mls/hr CT ABDOMEN/PELVIS W CONTRAST Stat RADS 04/18/18 19:[address] CHEST PE PROTOCOL Stat RADS 04/18/18 19:42 Completed Medications Generic Name Dose Route Start Last Admin Trade Name Freq PRN Reason Stop Dose Admin Sodium Chloride 1,000 mls @ 100 mls/hr 04/18/18 19:42 04/18/18 19:51 Sodium Chloride IV 04/19/18 05:41 100 mls/hr .Q10H STA Administration Sodium Chloride 1 syr 04/18/18 19:39 04/18/18 19:51 Saline Flush IVF 1 syr PRN PRN Administration To flush IV Discontinued Medications Generic Name Dose Route Start Last Admin Trade Name Freq PRN Reason Stop Dose Admin Albuterol/Ipratropium 1 vial 04/18/18 19:48 04/18/18 20:19 Duoneb NEB 04/18/18 19:49 1 vial ONCE STA Administration Hydromorphone HCl 0.5 mg 04/18/18 19:42 04/18/18 19:50 Dilaudid 0.5 Mg/0.5 Ml Syringe IVP 04/18/18 19:43 0.5 mg ONCE STA Administration Ondansetron HCl 4 mg 04/18/18 19:42 04/18/18 19:51 Zofran 4 Mg/2 Ml IVP 04/18/18 19:43 4 mg ONCE STA Administration Vital Signs: Temp Pulse Resp BP Pulse Ox 04/18/18 19:36 98.1 F 107 H 26 H 181/131 H 97 YOUSUF Risk Score YOUSUF Risk Score: Risk Score Odds of by 30D 0 0.1 (0.1-0.2) 1 0.3 (0.2-0.3) 2 0.4 (0.3-0.5) 3 0.7 (0.6-0.9) 4 1.2 (1.0-1.5) 5 2.2 (1.9-2.6) 6 3.0 (2.5-3.6) 7 4.8 (3.8-6.1) Departure - Departure Time of Disposition: 21:15 Disposition: PLACED OBSERVATION Discharge Problem: Chest pain Qualifiers: Chest pain type: unspecified Qualified Code(s): R07.9 - Chest pain, unspecified Instructions: Chest Pain (ED) Condition: Good Pt referred to PMD for follow-up: Yes IPMP verified?: No Allergies/Adverse Reactions: Allergies No Known Allergies Allergy (Verified 04/18/18 19:41) Home Medications: Ambulatory Orders Cyclobenzaprine HCl [Flexeril] 10 mg PO DAILY PRN 04/14/18 Lisinopril/Hydrochlorothiazide [Lisinopril-Hctz 10-12.5 mg Tab] 10 - 12.5 mg PO DAILY 04/14/18 Meloxicam 15 mg PO DAILY 04/14/18 Prednisone 10 mg PO DAILY 04/14/18 Cyclobenzaprine HCl [Flexeril] 5 mg PO BID #14 tablet 04/15/18 Hydrocodone Bit/Acetaminophen [[place] 7.5-325] 1 tab PO BID PRN #14 tab 04/15/18 Disposition Discussed With: Patient, Family
[2018-04-18] MEDS ORDERED: NITROSTAT SL PRN (21:19)
[2018-04-18] MEDS ORDERED: PROTONIX IV IVP STA (21:19)
[2018-04-18] MEDS ORDERED: ZOFRAN 4 MG/2 ML IVP PRN (21:20)
[2018-04-18] MEDS ORDERED: NORCO 7.5-325 PO PRN (21:21)
[2018-04-18 22:28] VITALS: BMI 40.9
[2018-04-18] MEDS: MORPHINE 2 MG/ML SYRINGE IVP PRN (22:33)
[2018-04-19] MEDS: FLEXERIL PO PRN ×2 (00:26→13:57)
[2018-04-19] MEDS: SODIUM CHLORIDE 1,000 ML IV SCH ×4 (00:59→21:45)
[2018-04-19] MEDS: MORPHINE 2 MG/ML SYRINGE IVP PRN ×3 (02:27→11:04)
[2018-04-19] MEDS: ZESTRIL PO SCH (09:16)
[2018-04-19] MEDS: PREDNISONE PO SCH (09:17)
[2018-04-19] MEDS: NEURONTIN PO SCH (09:17)
[2018-04-19] MEDS: LOVENOX SUBCUT SCH (09:17)
[2018-04-19] MEDS: HYDROCHLOROTHIAZIDE PO SCH (09:17)
[2018-04-19] MEDS ORDERED: DECADRON 4 MG/ML SDV IVP STA (12:38)
[2018-04-19] MEDS ORDERED: MORPHINE 2 MG/ML SYRINGE IVP PRN (12:39)
[2018-04-19] MEDS: TORADOL IVP SCH ×2 (13:56→20:14)
[2018-04-19] MEDS ORDERED: MORPHINE 2 MG/ML SYRINGE ONE (15:19)
[2018-04-20] MEDS ORDERED: TORADOL ONE (02:41)
[2018-04-20] MEDS: SODIUM CHLORIDE 1,000 ML IV SCH ×2 (04:17→14:36)
[2018-04-20] MEDS: TORADOL IVP SCH ×4 (04:17→19:28)
[2018-04-20] MEDS: PREDNISONE PO SCH (09:05)
[2018-04-20] MEDS: HYDROCHLOROTHIAZIDE PO SCH (09:05)
[2018-04-20] MEDS: LOVENOX SUBCUT SCH (09:06)
[2018-04-20] MEDS: ZESTRIL PO SCH (09:06)
[2018-04-20] MEDS: NEURONTIN PO SCH (09:07)
[2018-04-21] MEDS: SODIUM CHLORIDE 1,000 ML IV SCH ×4 (01:30→06:10)
[2018-04-21] MEDS: TORADOL IVP SCH ×2 (01:34→05:37)
--- NOTE | 2018-04-21 08:33 | ECHO2D ---
Date of Exam: 04/20/18 Ordering Physician: DR. CECI HENRIQUEZ Room #: SCU 2 Reason for Echo: CHEST PAIN, HYPERTENSION M-Mode Normal Adult Results LV Dimensions Normal Adult Results AoV Opening excursions >1.6 >1.6 LVEDD-base- 3.5-5.8 5.2 Ao root dimensions 2.0-3.7 2.9 LVESD-base- 3.1-4.6 L. Atrium dimensions 1.9-3.8 4.0 Post. Wall thickness 0.8-1.1 1.3 IV septum (thickness) 0.7-1.2 1.3 Post. Wall excursion 0.72-1.3 NORMAL Septal motion NORMAL Systolic motion R. Ventricular cavity 1.5-2.0 NORMAL LVEF 60% 60% Paradoxical septal wall motion NORMAL 2-D : 2-D M Mode Echocardiogram was performed using apical four chamber and left parasternal long and short axis views. Mitral, tricuspid and aortic valves appear to be normal. Contractility of the left ventricle seems to be normal, so is the cavity size. Left atrial cavity size and aortic root appear to be normal. There is no pericardial effusion. There is no thrombus noted in the left ventricular or left aortic cavity. No mitral valve prolapse noted. M-MODE: MV: NORMAL AV: NORMAL TV: NORMAL PV: CHAMBER SIZE: ENLARGED LEFT ATRIAL CAVITY-BORDERLINE WALL MOTION: NORMAL PERICARDIUM: NORMAL INTERPRETATION: 1. LEFT VENTRICULAR HYPERTROPHY WITH MILD LEFT ATRIAL CAVITY ENLARGEMENT 2. NORMAL LEFT VENTRICULAR CONTRACTILITY (LVEF) 3. NORMAL VALVES MTDD
[2018-04-21] MEDS ORDERED: VITAMIN B-12 IM STA (08:57)
[2018-04-21] MEDS: PREDNISONE PO SCH (08:58)
[2018-04-21] MEDS: ZESTRIL PO SCH (08:58)
[2018-04-21] MEDS: HYDROCHLOROTHIAZIDE PO SCH (08:58)
[2018-04-21] MEDS: LOVENOX SUBCUT SCH (08:59)
--- NOTE | 2018-04-21 09:06 | STRESSMOD ---
Date of Test: 04/21/18 Ordering Physician: DR. 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 Reason for Exam: CHEST PAIN Smoking History: HALF PK DAY Height: 68" Weight: 269 LBS Current Medications: MELOXICAM, LISINOPRIL, NORCO, NEURONTIN, FLEXERIL Resting EKG: SINUS RHYTHM/ NO ACUTE CHANGES Target Heart Rate: 147/173 S-T SEGMENT STAGE MPH/GRADE HEART RATE BPM BLOOD PRESSURE mmhg RHYTHM +/- ELEVATION DEPRESSION SYMPTOMS,COMMENTS At Rest 80 148/90 SR X NONE 1 1.7/0% 110 150/76 SR X NONE 2 1.7/5% 114 162/76 SR X NONE 3 1.7/10% 4 2.5/12% 5 3.4/14% Immediately After 135 SR X SHORT OF BREATH Minutes Post Exercise 5:00 88 152/84 SR X SHORT OF BREATH Minutes Post Exercise DURATION OF EXERCISE: 5:00 MAXIMUM HEART RATE REACHED: 135 REASON FOR TERMINATION: SHORT OF BREATH 97% OXYGEN SATURATION WITH EXERCISE ON ROOM AIR METS 7.0 INTERPRETATION: 1. NO EVIDENCE OF ISCHEMIA BY ST-T WAVE CHANGES FROM RESTING HEART RATE 80 BPM TO 135 BPM WITH EXERCISE 2. NO CHEST PAIN OR DISCOMFORT 3. BLOOD PRESSURE RESPONSE: ADEQUATE 4. NO ARRHYTHMIAS LEFT VENTRICULAR CONTRACTILITY--NORMAL AND POST EXERCISE MTDD
--- NOTE | 2018-04-21 09:09 | ECHOSTRESS ---
Date of Exam: 04/21/18 Ordering Physician: DR. CECI HENRIQUEZ Reason for Echo: CHEST PAIN, STRESS TEST--NO ISCHEMIA M-Mode Normal Adult Results LV Dimensions Normal Adult Results AoV Opening excursions >1.6 LVEDD-base- 3.5-5.8 Ao root dimensions 2.0-3.7 LVESD-base- 3.1-4.6 L. Atrium dimensions 1.9-3.8 Post. Wall thickness 0.8-1.1 IV septum (thickness) 0.7-1.2 Post. Wall excursion 0.72-1.3 Septal motion Systolic motion R. Ventricular cavity 1.5-2.0 LVEF 60% Paradoxical septal wall motion 2-D: NORMAL LEFT VENTRICULAR CONTRACTILITY--RESTING AND POST EXERCISE M-MODE: MV: AV: TV: PV: CHAMBER SIZE: WALL MOTION: NORMAL LEFT VENTRICULAR CONTRACTILITY--RESTING AND POST EXERCISE PERICARDIUM: INTERPRETATION: 1. NORMAL LEFT VENTRICULAR CONTRACTILITY--RESTING AND POST EXERCISE MTDD
[2018-04-21 11:19] VITALS: BP 147/97; TEMP 97.6
--- NOTE | 2018-04-21 19:29 | PCM.HOSP ---
- Observation Care Discharge [id number] OBS Care Discharge ([id number]): 04/21 - Initial Observation Care [id number] High Complexity 70 Minutes (82532): 04/18 - Subsequent Observation Care [id number] 35 Minutes per Day ([id number]): 04/19. 04/20
--- NOTE | 2018-04-22 14:01 | HP ---
DATE OF SERVICE: 04/18/18 CHIEF COMPLAINT: Chest pain. HISTORY OF PRESENT ILLNESS: This 47-year-old female came to the emergency room for shortness of breath, difficulty breathing and left-sided chest pain. She was seen by Dr. Rosales. The patient was hypoxic. ABG done, pH 7.420, pc02 40.3, p02 77. CT with PE protocol was negative. At that time, the patient was admitted to the hospital to rule out coronary artery disease. The patient has hypoxemia. REVIEW OF SYSTEMS: CONSTITUTIONAL: No fever, no chills. HEENT: Normal. ENDOCRINE: No weight gain; no weight loss. CVS: Left-sided chest pain. No PND, no orthopnea. Shortness of breath. No PND , no orthopnea. RESPIRATORY: No cough, no congestion. No hemoptysis. GI: No nausea, no vomiting. No abdominal pain. No melena. : No hematuria. No polyuria. MUSCULOSKELETAL: Back pains, upper extremity and lower extremity numbness for which the patient has been evaluated recently. PSYCHIATRIC: Not anxious. No depression. No suicidal thoughts. No homicidal thoughts. SKIN: Intact, no open lesions. PAST MEDICAL HISTORY: Hypertension History of pneumonia February 26, 2018 PAST SURGICAL HISTORY: Cholecystectomy Bladder tie up PERSONAL HISTORY: Does not smoke or drink. She has four kids, three living, one miscarriage FAMILY HISTORY: Prostate cancer. MEDICATIONS: (HOME) Meloxicam Lisinopril Hydrochlorothiazide Prednisone Flexeril [place] Neurontin ALLERGIES: NKDA PHYSICAL EXAMINATION: V/S: BP 181/131, respiratory rate 26, heart rate 107, temperature 98.1, saturation 97. HEENT: Atraumatic, normocephalic. No scleral icterus. Pallor . Mucosa . NECK: Supple. No JVD, no bruit. No lymphadenopathy. No thyromegaly. HEART: S1, S2 normal. No murmur. No cyanosis or clubbing. No ascites. LUNGS: Clear to auscultation. No rales or rhonchi. ABDOMEN: Soft, nontender. Bowel sounds are active. No CVA tenderness. No rigidity or guarding. EXTREMITIES: No pedal edema. No cyanosis or clubbing MUSCULOSKELETAL: Normal joints, no swelling. NEUROLOGIC: The patient is SKIN: Intact; no open lesions. LYMPHATIC: No lymph nodes palpable. LABS: White count 16.80, hemoglobin 15.3, hematocrit 41.4, platelet count 301. ABGs pH 7.426, pc02 40.3, p02 77. Sodium 136, potassium 3.9, chloride 101, bicarb 24 , BUN 22, creatinine 0.90, glucose 130. ASSESSMENT: 1. LEFT-SIDED CHEST PAIN 2. SHORTNESS OF BREATH 3. HYPOXEMIA 4. NO PE 5. HYPERTENSION PLAN: 1. Admit patient for observation. 2. Echo and stress echo in the morning 3. Morphine and Dilaudid 4. Lovenox 5. IV fluids TIME SPENT: MORE THAN 75 minutes MTDD
--- NOTE | 2018-04-23 14:08 | DS ---
DATE OF SERVICE: 04/21/18 FINAL DIAGNOSIS: 1. Chest pain noncardiac 2. Hypertension 3. Numbness and tingling in upper and lower extremities for which the patient been under the evaluation and outpatient conduction studies 4. Cholecystectomy 5. Back pain with muscle spasms which radiates to the front of the abdominal pain. MRI of the thoracic spine and MRI of lumbar spine, no pinched nerves. DISCHARGE INSTRUCTIONS: Discharge the patient home. Followup in the [facility] within 5-7 days. Continue home medications. MEDICATIONS AT DISCHARGE: Neurontin Flexeril Lisinopril Hydrochlorothiazide Meloxicam Prednisone Hydrocodone NEW PRESCRIPTIONS: None DIET INSTRUCTIONS: Cardiac and healthy ACTIVITY: As much as tolerated DISEASE SPECIFIC EDUCATION: Chest pain and noncardiac chest pain been discussed Peripheral neuropathy been discussed and verbalized understanding. HOSPITAL COURSE: Josiane Ariza who is a 47 year old female came to the emergency room with the severe left sided chest pain and cramping. Seen by Dr. Rosales in the emergency room. Initial EKG was negative. Blood pressure 181/31, respiratory rate 23, heart rate 107. ABG done which showed the pH 7.426, pCO2 40.[address] chest with the PE protocol was done which was negative for the PE. At that time the patient was admitted to the hospital to rule out coronary artery disease. We will get a stress test and echocardiogram. CT abdomen and pelvis is negative. The patient kept complaining of the left sided lower chest pain which radiates up to the left anterior abdominal pain. Says that the area is swelling up. The patient did have an MRI of the thoracic spine just one week ago which did not show any radiculopathy at that time. It's been the patient's second admission in 10 days. Been to the [facility] with the severe complaints. So far she has had three CAT scans done and everything came out to be negative. The patient is going through a lot of stress and the patient is going through a divorce at this time. Radiological mike the patient is not have any acute findings but kept thinking that something is wrong with the patient. Tried to explained to the patient's family. Meanwhile we did get the echocardiogram which showed LVH. Dobutamine stress echocardiogram. She was able to walk on the treadmill without any problem today and it was negative. Vitamin B12 levels were done which are low and the patient was given dose of Vitamin B12 today. We will continue to given her every month. Despite showing the patient the patient was still complaining of some numbness in the hands and feet which she describes as a numbness and when she ask for the strength she does have a normal strength in both upper and lower extremities. Reassured the patient and still advised to get a electromyelogram and did discuss about the low Vitamin B12 and did explain that maybe the reason for the numbness. The patient being discharged home today. TIME SPENT: MORE THAN 65 MINUTES ANDREEA
--- NOTE | 2018-04-23 14:38 | PN ---
DATE OF SERVICE: 04/19/18 SUBJECTIVE: Still having some abdominal cramping and left lower belly area cramping but no chest pain. The family is present in the room and all the questions have been answered. REVIEW OF SYSTEMS: CONSTITUTIONAL: No fever, no chills. HEENT: Normal. ENDOCRINE: No weight gain, no weight loss. CVS: No angina symptoms. No CHF symptoms. No palpitations. No atypical chest pain for CAD. No shortness of breath. No PND, no orthopnea. RESPIRATORY: No cough, no hemoptysis. GI: No nausea, no vomiting. No abdominal pain. : No hematuria. No polyuria. MUSCULOSKELETAL: No joint swelling. PSYCHIATRIC: Not anxious. No depression. No suicidal thoughts. No homicidal thoughts. SKIN: Intact. No rash. PHYSICAL EXAMINATION: V/S: blood pressure 150/76, respiratory rate 16, heart rate 85, temperature 97.6 with saturation 97%. HEENT: Normocephalic, atraumatic. Mucosa dry. Pallor positive. No icterus. NECK: Supple. No JVD, no carotid bruit. No lymphadenopathy. LUNGS: Decreased and basilar crackles. No rales or rhonchi. HEART: S1, S2 normal. No S3. No murmur, gallop or regurgitation. ABDOMEN: Soft, left upper quadrant tenderness is present. Bowel sounds active. No rigidity. No rebound or guarding. No CVA tenderness. EXTREMITIES: No cyanosis, clubbing or pedal edema. MUSCULOSKELETAL: No joint swelling. NEUROLOGIC: Awake, alert. No focal deficit. LYMPHATIC: No lymph nodes palpable. SKIN: Intact. LABS: Sodium 136, potassium 3.9, chloride 101, Bicarb 24, BUN 22, creatinine 0.80 and glucose 130, WBC 16.80, hgb 15.3, hct 44.1, plt count 209. ASSESSMENT: 1. Chest pain rule out ACS 2. Hypertension uncontrolled 3. Obesity 4. Left flank pain 5. DJD spine 6. Upper extremity and lower extremity neuropathy PLAN: 1. Stop the Dilaudid 2. Continue Morphine PRN 3. Echocardiogram and Stress echo TIME SPENT: More than 35 minutes [facility]
--- NOTE | 2018-04-24 07:31 | PN ---
DATE OF SERVICE: 04/20/18 SUBJECTIVE: Wanted to do the stress test and echocardiogram. Dr. Beckman did the echocardiogram which showed LVH. The patient was not able to walk. Stress echo was not done. REVIEW OF SYSTEMS: CONSTITUTIONAL: No fever, no chills. HEENT: Normal. ENDOCRINE: No weight gain, no weight loss. CVS: No angina symptoms. No CHF symptoms. No palpitations. No atypical chest pain for CAD. No shortness of breath. No PND, no orthopnea. RESPIRATORY: No cough, no hemoptysis. GI: No nausea, no vomiting. No abdominal pain. : No hematuria. No polyuria. MUSCULOSKELETAL: No joint swelling. PSYCHIATRIC: Not anxious. No depression. No suicidal thoughts. No homicidal thoughts. SKIN: Intact. No rash. PHYSICAL EXAMINATION: V/S: Blood pressure 126/72, respiratory rate 16, heart rate 81, temperature 97.9 with saturation 95%. HEENT: Normocephalic, atraumatic. Mucosa dry. Pallor positive. No icterus. NECK: Supple. No JVD, no carotid bruit. No lymphadenopathy. LUNGS: Decreased and basilar crackles. No rales or rhonchi. HEART: S1, S2 normal. No S3. No murmur, gallop or regurgitation. ABDOMEN: Soft, nontender. Bowel sounds active. No rigidity. No rebound or guarding. No CVA tenderness. EXTREMITIES: No cyanosis, clubbing or pedal edema. Sensations are intact, motor strength is good. MUSCULOSKELETAL: No joint swelling. NEUROLOGIC: Awake, alert. No focal deficit. LYMPHATIC: No lymph nodes palpable. SKIN: Intact. LABS: WBC 16.80, hgb 15.3, hct 44.1, plt count 301, sodium 136, potassium 3.9, chloride 101, bicarb 24, BUN 22, creatinine 0.80 and glucose 130. ASSESSMENT: 1. Chest pain rule out ACS 2. Generalized weakness 3. Recent stress from the very bad divorce situation 4. DJD spine 5. Back pain 6. Back spasms 7. Hypertension PLAN: 1. Dobutamine Stress echo 2. In review of patient's Ataxia we will stop the Neurontin and Hydrocodone 3. Will Continue with Toradol at this time. TIME SPENT: More than 35 minutes MTDD
== END 2018-04-21 12:28 | disposition home or self-care (01) ==
LOC: ED 19:36 → INTOOBSV 21:17 → SCU 21:17
PROVIDERS: ADMIT Emergency Medicine; ATTEND Emergency Medicine
DX: R06.02 Shortness of breath (principal); R07.9 Chest pain, unspecified; M54.9 Dorsalgia, unspecified; R10.9 Unspecified abdominal pain; Z72.0 Tobacco use; R09.02 Hypoxemia; R20.0 Anesthesia of skin; R53.1 Weakness; E66.9 Obesity, unspecified; M47.9 Spondylosis, unspecified
CPT/HCPCS: 36415; 80053; 82150; 82550; 82607; 82803; 83690; 84484; 85025; 87081; 93005; 93010; 94640; 96361; 96365; 96375; 99284; 99285

== ENCOUNTER 2018-09-25 13:00 | Outpatient (RCR) ==
--- NOTE | 2018-09-08 15:52 | RS.OPPTEV2 ---
Date of Note: 09/08/18 Visit #: 1 Number of visits approved by Insurance: pending Date of Evaluation: 09/08/18 Payer Source: Medicaid Surgery Performed?: No Treatment Diagnosis: neck pain History of Condition/Mechanism of Injury:: pt reports that she had initial episodes of numbness and tingling in hands and upper ext 03/2018. Reports that she had a reaction to levaquin. 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 Functional Limitations: Reaching, Pushing, Pulling, Lifting, Carrying Current Subjective/complaints:: pt reports that her neurosurgeon wants an MRI but insurance states that she has to have PT first. She states they say I need B carpal tunnel surgery. Treatment Side (optional): N/A *Precautions: n/a Medical History Medical History Comments:: anxiety Surgical History: Cholecystectomy, Hysterectomy Smoking Status: Former smoker Hx Home Medications: pt did not bring list of home medications. Patient's Goals: decreased pain in cervical spine Pain Assessment - Pain Description Pain Location: cervical spine Pain Description: Tightness Current Pain Intensity: 4/10 Functional Outcome Measure Neck Disability Index: 23 - G Codes & Severity Modifier G Codes & Modifier: n/a Source of G Code score: n/a Observation - Observation Posture: Forward Head, Rounded Shoulders, Decreased Cervical Lordosis Gait - Gait Pattern General Gait Pattern Observation: No Deviations/Normal General Range of Motion: BUE WFL's. BLE WFL's Muscle Strength: LUE: shld flex 3+/5, elbow flex/ext 4-/5,. RUE: shld flex 4/5 , elbow flex/ext 4+/5 - ROM Cervical Spine Range of Motion Limitations: Soft Tissue Tightness, Muscle Weakness, Pain Comments: cervical ROM WFL's with pain with cervical flex, and increased pain with rotation to L. - Strength Cervical Extension: 4 Good Cervical Flexion: 4- Good- Cervical Lateral Flexion: 4- Good- Cervical Rotation: 4- Good- Comments: neural tension test BUE (+) - Special Tests Foraminal Distraction: Negative Foraminal Compression: Negative Left, Negative Right Palpation Palpation Findings: Tenderness, Trigger Point Comments:: tenderness and trigger points noted in L Upper trap, muscle guarding noted in B upper trap. Sensation - Sensation Right Upper Extremity: Intact/Normal Left Upper Extremity: Intact/Normal Right Lower Extremity: Intact/Normal Left Lower Extremity: Intact/Normal Comments: reports only n/t over spinous process at level of C7 Balance - Sitting Balance Static Sitting Balance: Normal Dynamic Sitting Balance: Normal - Standing Balance Static Standing Balance: Normal Dynamic Standing Balance: Normal - Heat/Cryotherapy Treatment: Hot Pack Comments:: cervical spine Interventions - Exercise/Activities/Manual Therapy Exercises/Activities: pt performed cervical retractions, scapular retraction, corner stretch, upper trap stretch. Manual Therapy: n/a HOME EXERCISE PROGRAM: pt given written HEP including cervical retraction, upper trap stretch, scapular retraction, corner stretch - Charges Timed Code Treatment Minutes: 51 Total Treatment Time: 59 Procedures billed for this date of service:: myke soriano, ex EVALUATION COMPLEXITY LEVEL EVALUATION COMPLEXITY LEVEL: HISTORY: Low (cervical pain), EXAM OF BODY SYSTEMS : Low (strength, pain, ROM), CLINICAL PRESENTATION: Low, CLINICAL DECISION MAKING: Low Assessment Assessment: pt presents with decreased strength LUE worse than RUE, posture, balance. pt with trigger points noted in L upper trap. 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 Goal #1: pt report increased ability to perform normal daily activities w less pain Goal to be met by: 10/06/18 Goal #2: pt with improved posture with decreased pain Goal to be met by: 10/06/18 Goal #3: pt with increased strength LUE 4 to 4+/5 Goal to be met by: 10/06/18 Plan - Treatment to be Provided Procedures: Therapeutic Exercises, Therapeutic Activity, Manual Therapy, Massage , Patient Education Modalities: Electrical Stimulation, Ultrasound/Phonophoresis, Cryotherapy, Hot Packs, Mechanical Traction - Treatment Plan Frequency: 2 X week Duration: 4 weeks Dates of Nursing Home Goals: 10/06/18 Expiration date of current Insurance Approval:: pending - Treatment Code (1) Cervical pain Code(s): M54.2 - CERVICALGIA (2) Muscle tightness Code(s): M62.89 - OTHER SPECIFIED DISORDERS OF MUSCLE (3) Muscle weakness Code(s): M62.81 - MUSCLE WEAKNESS (GENERALIZED)
--- NOTE | 2018-09-12 13:45 | RS.CXNS ---
Date of scheduled appointment: 09/12/18 Type: No Show
--- NOTE | 2018-09-23 15:36 | RS.OPPTDN ---
Subjective Date of Note: 09/23/18 Visit #: 2 Number of visits approved by Insurance: 2x4 Date of Evaluation: 09/08/18 Payer Source: Medicaid Treatment Diagnosis: neck pain Current Subjective/complaints:: Patient says she has had no change in her pain since eval. Reports her pain is now described as achy and stiff. She says she hurts no matter what. She says she has had prompt care rn in the past and she admits relief, but recently has not gained improvement. *Precautions: n/a - Treatment Modality: Ultrasound Parameters/Method Applied: continuous @ 1.5 w/cm2 x 12 mins bilateral UT Patient Position: Sitting - Heat/Cryotherapy Treatment: Hot Pack (cervical in sitting x 20 mins) Interventions - Exercise/Activities/Manual Therapy Exercises/Activities: Patient received passive cervical stretching of SB and rotation bilaterally. Levator scap stretching. Assisted shoulder shrugs and scap adduction with education on diagnosis and postural mechanics. Total minutes of Exercise: 10 Manual Therapy: n/a HOME EXERCISE PROGRAM: pt given written HEP including cervical retraction, upper trap stretch, scapular retraction, corner stretch - Charges Timed Code Treatment Minutes: 22 Total Treatment Time: 42 Procedures billed for this date of service:: hp, u/s, ex Assessment: Patient demo increased muscle guarding to moderate throughout the bilateral UT/rhomboids. Patient has tenderness to the L UT/scapula region, but appears to carola u/s well. She sits with rounded shoulders, sitting away from the back of the chair with L scapula/shoulder turned anteriorally. She demo cspine WFL and only sore at end ranges. She will benefit from stretching and postural therex/activities. She has initiated HEP, but scapular adduction caused MIRELES's after 5-6 reps at home, none here. Patient Education: Education of diagnosis, Body/Joint mechanics, Home Exercise Program, Education of Plan of Care Patient demonstrates compliance with HEP?: Yes (patient tried,but discontinued causedHAs) Short Term Goals Goal #1: pt independent with initial HEP Goal to be met by: 09/22/18 Progress towards Goal:: Progressing Goal #2: pt with improved flexibility in L Upper trap Goal to be met by: 09/22/18 Goal #3: pt with decreased pain noted in cervical spine <4/10 with activity Goal to be met by: 09/22/18 Rn Behavioral Health Goals Goal #1: pt report increased ability to perform normal daily activities w less pain Goal to be met by: 10/06/18 Goal #2: pt with improved posture with decreased pain Goal to be met by: 10/06/18 Goal #3: pt with increased strength LUE 4 to 4+/5 Goal to be met by: 10/06/18 Plan Dates of Rn Behavioral Health Goals: 10/06/18 Expiration date of current Insurance Approval:: 10/06/18 PLAN: Patient to continue with modalities and MT to reduce pain and improve postural awareness.
--- NOTE | 2018-09-25 14:20 | RS.OPPTDN ---
Subjective Date of Note: 09/25/18 Visit #: 3 Number of visits approved by Insurance: REquested 8 Date of Evaluation: 09/08/18 Payer Source: Medicaid Treatment Diagnosis: neck pain Current Subjective/complaints:: Patient says, "I'm sore and stiff today, but I' m alright." Reports no feeling of improvement from previous session. *Precautions: n/a - Treatment Modality: Ultrasound Parameters/Method Applied: continuous @ 1.5 w/cm2 x 12 mins to bilateral UT Patient Position: Sitting - Heat/Cryotherapy Treatment: Hot Pack (cervical x 20 mins in sitting per her request.) Interventions - Exercise/Activities/Manual Therapy Exercises/Activities: Patient received passive cervical stretching of SB and rotation bilaterally. Levator scap stretching. Total minutes of Exercise: 5 Manual Therapy: Began DTM and trigger point work to bilateral UT and rhomboid area. 12 mins HOME EXERCISE PROGRAM: pt given written HEP including cervical retraction, upper trap stretch, scapular retraction, corner stretch - Charges Timed Code Treatment Minutes: 29 Total Treatment Time: 49 Procedures billed for this date of service:: hp, u/s, ex Assessment: Patient continues to demo moderate muscle guarding to bilateral UT/ rhomboids. She has no admission of change of pain. She has tenderness to the the L more than R. Various small trigger points throughout both areas. She demo cspine ROM for rotation WFL. Patient Education: Body/Joint mechanics, Home Exercise Program, Education of Plan of Care Patient demonstrates compliance with HEP?: Yes Short Term Goals Goal #1: pt independent with initial HEP Goal to be met by: 09/22/18 Progress towards Goal:: Progressing Goal #2: pt with improved flexibility in L Upper trap Goal to be met by: 09/22/18 Goal #3: pt with decreased pain noted in cervical spine <4/10 with activity Goal to be met by: 09/22/18 Lokie Driver Goals Goal #1: pt report increased ability to perform normal daily activities w less pain Goal to be met by: 10/06/18 Goal #2: pt with improved posture with decreased pain Goal to be met by: 10/06/18 Goal #3: pt with increased strength LUE 4 to 4+/5 Goal to be met by: 10/06/18 Plan Dates of Lokie Driver Goals: 10/06/18 Expiration date of current Insurance Approval:: 10/06/18 PLAN: May modify treatment to estim next week if no pain relief through u/s.
== END 2018-09-25 23:59 ==
PROVIDERS: ATTEND Specialist
DX: M54.2 Cervicalgia (principal)

== ENCOUNTER 2018-09-29 08:00 | Outpatient (CLI) | END 2018-09-29 08:01 | disposition home or self-care (01) | LOC: RHC-LAB 08:00 | PROVIDERS: ATTEND Nurse Practitioner Family | DX: I10 Essential (primary) hypertension (principal) | CPT/HCPCS: 36415; 80053; 80061; 84443; 85025 ==

== ENCOUNTER 2018-10-07 13:00 | Outpatient (RCR) ==
--- NOTE | 2018-09-30 15:24 | RS.OPPTDN ---
Subjective Date of Note: 09/30/18 Visit #: 4 Number of visits approved by Insurance: Requested 8 Date of Evaluation: 09/08/18 Payer Source: Medicaid Treatment Diagnosis: neck pain Current Subjective/complaints:: Patient says she is not any better, but no worse. Reports she returns to the MD today to find out about bloodwork. Denies being more sore from MT last session. *Precautions: n/a Pain Assessment - Pain Description Pain Location: Does not rate Pain Description: Tightness - Treatment Modality: US with ES (Comb.) Parameters/Method Applied: continuous @ 1.5 w/cm2 and 12 ma estim to bilateral UT Patient Position: Sitting - Heat/Cryotherapy Treatment: Hot Pack (cervical x 20 mins in sitting) Interventions - Exercise/Activities/Manual Therapy Exercises/Activities: Reviewed at home stretching and postural mechanics/ techniques. No therex performed due to needing to leave for a MD appt. Manual Therapy: Continued with DTM and trigger point work to bilateral UT and rhomboid area. 15 mins HOME EXERCISE PROGRAM: pt given written HEP including cervical retraction, upper trap stretch, scapular retraction, corner stretch - Charges Timed Code Treatment Minutes: 27 Total Treatment Time: 47 Procedures billed for this date of service:: hp, u/s with estim Assessment: Modified treatment to add estim to u/s with patient admitting relief during and immediately after treatment. She demo moderate increase muscle tone bilateral UT/scapula with this also improving more so to the L than R. Patient Education: Education of diagnosis, Body/Joint mechanics, Home Exercise Program, Education of Plan of Care Patient demonstrates compliance with HEP?: Yes (initial HEP) Short Term Goals Goal #1: pt independent with initial HEP Goal to be met by: 09/22/18 Progress towards Goal:: Progressing Goal #2: pt with improved flexibility in L Upper trap Goal to be met by: 09/22/18 Progress towards Goal:: Progressing Comments:: slightly after and during MT Goal #3: pt with decreased pain noted in cervical spine <4/10 with activity Goal to be met by: 09/22/18 Progress towards Goal:: No Change Half-Way Goals Goal #1: pt report increased ability to perform normal daily activities w less pain Goal to be met by: 10/06/18 Goal #2: pt with improved posture with decreased pain Goal to be met by: 10/06/18 Goal #3: pt with increased strength LUE 4 to 4+/5 Goal to be met by: 10/06/18 Plan Dates of Half-Way Goals: 10/06/18 Expiration date of current Insurance Approval:: 10/06/18 PLAN: Continue with u/s combo and MT to relieve muscle guarding and pain.
--- NOTE | 2018-10-02 15:13 | RS.OPPTDN ---
Subjective Date of Note: 10/02/18 Visit #: 5 Number of visits approved by Insurance: Requested 8 Date of Evaluation: 09/08/18 Payer Source: Medicaid Treatment Diagnosis: neck pain Current Subjective/complaints:: Patient says she was hurting last night, but believes it is related to weather changes. She says she does not think it is related to beginning u/s combo. *Precautions: n/a - Treatment Modality: US with ES (Comb.) Parameters/Method Applied: continuous @ 1.5 w/cm2 x 12 mins with 115 pk volts to bilateral UT/scapular region Patient Position: Sitting - Heat/Cryotherapy Treatment: Hot Pack (cervical x 20 mins in sitting) Interventions - Exercise/Activities/Manual Therapy Exercises/Activities: Passive gentle cervical stretching for SB and rotation bilaterally. Reviewed at home stretching and postural mechanics/techniques. Total minutes of Exercise: 5 Manual Therapy: Continued with DTM and trigger point work to bilateral UT and rhomboid area. 15 mins HOME EXERCISE PROGRAM: pt given written HEP including cervical retraction, upper trap stretch, scapular retraction, corner stretch - Charges Timed Code Treatment Minutes: 32 Total Treatment Time: 52 Procedures billed for this date of service:: hp, u/s combo, MT Assessment: Patient remains with moderate increase in muscle guarding throughout the bilateral UT, but demo Cspine ROM WFL and no c/o's except soreness at end ranges. She does present with increased soreness she feels related to the damp weather. Remains also tender to mild to moderate palpation with MT. Patient Education: Education of diagnosis, Home Exercise Program, Education of Plan of Care Short Term Goals Goal #1: pt independent with initial HEP Goal to be met by: 09/22/18 Progress towards Goal:: Progressing Goal #2: pt with improved flexibility in L Upper trap Goal to be met by: 09/22/18 Progress towards Goal:: Progressing Goal #3: pt with decreased pain noted in cervical spine <4/10 with activity Goal to be met by: 09/22/18 Progress towards Goal:: No Change Retirement Goals Goal #1: pt report increased ability to perform normal daily activities w less pain Goal to be met by: 10/06/18 Goal #2: pt with improved posture with decreased pain Goal to be met by: 10/06/18 Goal #3: pt with increased strength LUE 4 to 4+/5 Goal to be met by: 10/06/18 Plan Dates of Retirement Goals: 10/06/18 Expiration date of current Insurance Approval:: 10/06/18 PLAN: Patient to continue with modalities to ease muscle guarding as able and improve pain.
--- NOTE | 2018-10-07 15:29 | RS.OPPTDN ---
Subjective Date of Note: 10/07/18 Visit #: 6 Number of visits approved by Insurance: pending, requested 8 Date of Evaluation: 09/08/18 Payer Source: Medicaid Treatment Diagnosis: neck pain Current Subjective/complaints:: Patient says she is not doing any better. She reports that she is waiting to attend a referral to Dr. Cedillo. She says she is not able to see any improvement with mobility to her neck or shoulder and continues with tenderness to the L UT. She says there are areas that when the u /s is on it, it will cause a MIRELES immediately. *Precautions: n/a Pain Assessment - Pain Description Pain Location: Does not rate Pain Description: Tightness Pain Description: tender, sore - Treatment Modality: Ultrasound Parameters/Method Applied: continuous @ 1.5 w/cm2 x 10 mins to the L UT and shoulder Patient Position: Sitting - Heat/Cryotherapy Treatment: Hot Pack (L UT/scapula/shoulder in sitting x 20 mins) Interventions - Exercise/Activities/Manual Therapy Exercises/Activities: Passive gentle cervical stretching for SB and rotation bilaterally. Reviewed at home stretching and postural mechanics/techniques. Instructed in corner stretch, scapular retraction and bilateral shoulder ER with red tband for home. Total minutes of Exercise: 15 Manual Therapy: na HOME EXERCISE PROGRAM: pt given written HEP including cervical retraction, upper trap stretch, scapular retraction, corner stretch - Objective Findings Observations,measurements,etc.: Neck Disability Index 25 or 50% disability ( Eval 23 or 46% impairment) - Charges Timed Code Treatment Minutes: 25 Total Treatment Time: 45 Procedures billed for this date of service:: hp u/s, ex Assessment: Patient actually voices no improvement with modification of modalities, therex, MT and expresses worsening per Neck Disability Index. She demo tenderness to mild palpation with transducer using u/s and with MT. She maintains moderate increase in muscle guarding to the L UT and limitation to WFL for Cspine ROM. Unknown consistency of HEP, but was encouraged to continue to work on as well as being diligent in improving postural awareness. 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
== END 2018-10-23 23:59 ==
PROVIDERS: ATTEND Specialist
DX: M54.2 Cervicalgia (principal)

== ENCOUNTER 2018-12-02 12:45 | Outpatient (CLI) ==
--- NOTE | 2018-12-02 14:42 | MRI ---
EXAM: Cervical spine MRI without contrast TECHNIQUE: Multiplanar multisequence MRI of the cervical spine was performed without contrast. COMPARISON: Thoracic spine MRI from 04/22/2018 HISTORY: Neck pain FINDINGS: There is no compression fracture. There is no significant bone marrow edema. Alignment i s anatomic. There is no acute soft disc herniation or extrusion. There is no significant spinal steno sis. Cord signal is normal without evidence of edema, myelomalacia, demyelination, mass, syrinx or i nfarct. There are no abnormal flow voids in the canal to suggest a vascular malformation. Visualize d soft tissues and intracranial contents show no acute abnormality. There are no pathologic lymph n odes. The prevertebral soft tissues are not thickened. There is no Chiari malformation or acute lig amentous injury. There is a mass in the right aspect of the thyroid gland measuring 2.5 cm in diamet er. There is some membrane thickening in the maxillary sinuses partially evaluated. C1-2: There is mild degenerative change. Alignment of the craniocervical junction is anatomic. There is no bone marrow edema, the dens is intact. C2-3: There is some disc space desiccation. C3-4: There is some disc space desiccation. C4-5: There is some disc space desiccation. C5-6: There is some minimal disc space desiccation and minimal ridging of the posterior longitudinal ligament. Canal stenosis: None C6 neural foraminal stenosis: None C6-7: There is disc space desiccation and a broad-based bulge. There is trace facet and ligamentous hypertrophy. Canal stenosis: Mild C7 neural foraminal stenosis: Mild bilateral C7-T1: There is minimal disc space desiccation. IMPRESSION: 1. Minimal lower cervical degenerative changes with no significant foraminal or central canal narrow ing and no lateralizing disc herniation or bone marrow edema. 2. Right thyroid mass as described. Would recommend further evaluation with ultrasound. Unexpected finding
== END 2018-12-02 12:46 | disposition home or self-care (01) ==
LOC: RAD 12:45
PROVIDERS: ATTEND Specialist
DX: M54.2 Cervicalgia (principal)

== ENCOUNTER 2019-01-01 10:12 | Outpatient (CLI) ==
--- NOTE | 2019-01-01 11:01 | US ---
EXAM: Thyroid ultrasound History: Thyroid nodules. Technique: Multiple sonographic images through the thyroid gland were obtained. Color duplex Dopple r was used to interrogate vascular flow. Findings: The right lobe of the thyroid measures 5.5 cm x 2.4 cm x 2.6 cm demonstrates heterogeneous echotextur e. 3.3 cm x 2.1 cm x 2.8 cm solid nodule within the right thyroid. The thyroid isthmus measures 0.3 cm in thickness. The left lobe of the thyroid measures 4.8 cm x 1.9 cm and 1.1 cm demonstrates heterogeneous echotextu re with 0.5 cm solid nodule. No extrathyroidal masses are identified. Thyroid gland is not hypervascular. Impression: Large dominant solid nodule within the right thyroid lobe. Recommend tissue sampling.
== END 2019-01-01 10:13 | disposition home or self-care (01) ==
LOC: RAD 10:12
PROVIDERS: ATTEND Nurse Practitioner Family
DX: E07.9 Disorder of thyroid, unspecified (principal)

== ENCOUNTER 2019-01-08 02:50 | Emergency (ER) ==
[2019-01-08 02:59] VITALS: TEMP 98.3; BMI 39.4
--- NOTE | 2019-01-08 03:14 | ED.PDOC ---
General ED Provider: Dr. SHIRA WOODS Chief Complaint: Syncope Stated Complaint: Found down by daughter passed out the had elevated blood pressure. Complains of headache Time Seen by Physician: 03:14 Mode of Arrival: Walk-In Information Source: Patient Exam Limitations: No limitations Primary Care Provider: GELY PATEL Nursing and Triage Documentation Reviewed and Agree: Yes Does patient meet sepsis criteria?: No System Inflammatory Response Syndrome: Not Applicable Sepsis Protocol: For patient's 13 years and over: Temp is 96.8 and below OR 101 and greater Pulse >90 BPM Resp >20/minute Acutely Altered Mental Status Are patient's symptoms suggestive of a new infection, such as: -Pneumonia -Skin, Soft Tissue -Endocarditis -UTI -Bone, Joint Infection -Implantable Device -Acute Abdominal Infection -Wound Infection -Meningitis -Blood Stream Catheter Infection -Unknown Neurological Complaint Exam - Syncope/Near Syncope Complaint/Exam Onset/Duration: just prior to arrival Symptoms Are: Resolved Number of Episodes: once Episodes Witnessed: No Loss of Consciousness: Yes Associated Head Trauma: No Activity at Onset: At rest Aggravating: None Associated Signs and Symptoms: Reports: Lightheadedness, Dizziness, Headache Cardiac Risk Factors: Reports: Hypertension GI Bleed Risk Factors: Reports: None JVD Present: Yes Carotid Bruit Present: No Rectal Heme Positive: No Glascow Coma Scale (see protocol): 15 Nystagmus Present: No Gag Reflex Present: Yes Meningeal Signs Positive: No Focal Weakness: Present: None Focal Sensory Loss: Present: None Gait: Normal [id number]: Normal Findings Romberg Test Positive: No Babinski Sign: Negative Right, Negative Left Heel to Toe Normal: No Differential Diagnoses: GI Bleed, Hypovolemia, Vasovagal Episode Quality Indicator For Non-Traumatic Chest Pain/Syncope: EKG Performed Review of Systems - Review Of Systems Constitutional: Reports: No symptoms Eyes: Reports: No symptoms Ears, Nose, Mouth, Throat: Reports: No symptoms Respiratory: Reports: No symptoms Cardiac: Reports: Syncope GI: Reports: Nausea : Reports: No symptoms Musculoskeletal: Reports: No symptoms Skin: Reports: No symptoms Neurological: Reports: Anxiety, Headache Endocrine: Reports: No symptoms Hematologic/Lymphatic: Reports: No symptoms All Other Systems: Reviewed and Negative Past Medical History - Past Medical History Previously Healthy: Yes Endocrine: Reports: None, Hypothyroid Cardiovascular: Reports: Hypertension Respiratory: Reports: None Hematological: Reports: None Gastrointestinal: Reports: None Genitourinary: Reports: None Neuro/Psych: Reports: Anxiety Musculoskeletal: Reports: None Cancer: Reports: None Last Menstrual Period: na Other Pertinent Past Medical History: obesity - Surgical History General Surgical History: Reports: Hysterectomy, Cholecystectomy - Family History Family History: Reports: Unknown - Social History Smoking Status: Current every day smoker, Heavy tobacco smoker Hx Substance Use: No Alcohol Screening: None - Immunizations Tetanus Shot up to Date: Yes Physical Exam - Physical Exam Appearance: Ill-appearing, Obese Ill-appearing: Mild Pain Distress: Moderate Eyes: WIN, EOMI, Conjunctiva clear Neck: Supple Respiratory: Airway patent, Breath sounds clear, Breath sounds equal, Respirations nonlabored Cardiovascular: RRR, Pulses normal, No rub, No murmur GI/: Soft, Nontender, No masses, Bowel sounds normal, No Organomegaly Musculoskeletal: Normal strength, ROM intact, No edema, No calf tenderness Skin: Warm, Dry, Normal color Neurological: Sensation intact, Motor intact, Reflexes intact, Cranial nerves intact, Alert, Oriented - NIH Stroke Scale 1a. Level of Consciousness: 0=Alert and keenly responsive 1b. Level of Consciousness Questions: 0=Answers correctly to two questions 1c. Level of Consciousness Commands: 0=Performs two tasks correctly 2. Best Gaze: 0=Normal 3. Visual: 0=No visual loss 4. Facial Palsy: 0=Normal 5a. Motor Left Arm: 0=No drift,arm holds 90 degrees for 10 sec., leg 30 degrees for 5 sec. 5b. Motor Right Arm: 0=No drift,arm holds 90 degrees for 10 sec., leg 30 degrees for 5 sec. 6a. Motor Left Le=No drift,arm holds 90 degrees for 10 sec., leg 30 degrees for 5 sec. 6b. Motor Right Le=No drift,arm holds 90 degrees for 10 sec., leg 30 degrees for 5 sec. 7. Limb Ataxia: 0=Absent 8. Sensory: 0=Normal 9. Best Language: 0=No aphasia 10. Dysarthria: 0=Normal 11. Extincion and Inattention: 0=Normal Stroke Scale Total: 0 Interpretation - Radiology Interpretation Radiology Interpretation By: Radiologist Radiology Results: Negative Exam Interpreted: CT Scan (head ) - Substance Abuse Specialist Rate: Normal Rhythm: Sinus - EKG Interpretation Time of EKG #1: 03:21 Rate: Normal Rhythm: Sinus Ectopy: None [place]: [place] ST Segment: Normal Interpretation: old septal infact Critical Care Note - Critical Care Note Total Time (mins): 40 Course - Course Hematology/Chemistry: 01/08/19 03:20 01/08/19 03:20 Orders, Labs, Meds: Lab Review 01/08/19 01/08/19 03:20 03:20 WBC 9.56 RBC 5.09 Hgb 15.5 Hct 45.3 MCV 89.0 MCH 30.5 MCHC 34.2 RDW Coeff of Jeffrey 12.7 Plt Count 237 Immature Gran % (Auto) 0.4 Neut % (Auto) 59.7 Lymph % (Auto) 29.3 [place] % (Auto) 7.4 Eos % (Auto) 2.7 Baso % (Auto) 0.5 Immature Gran # (Auto) 0.0 Neut # (Auto) 5.7 Lymph # (Auto) 2.8 [place] # (Auto) 0.7 Eos # (Auto) 0.3 Baso # (Auto) 0.1 Sodium 137.8 Potassium 3.84 Chloride 102.5 Carbon Dioxide 27.1 Anion Gap 12.04 BUN 11.7 Creatinine 0.73 Estimated GFR (MDRD) 85.00 BUN/Creatinine Ratio 16.02 Glucose 111.4 H Calcium 8.54 Total Bilirubin 0.52 AST 28.1 ALT 37.8 H Alkaline Phosphatase 75.5 Total Creatine Kinase 149.1 H CK-MB (CK-2) 1.280 CK-MB (CK-2) % 0.8500 Troponin I < 0.012 Total Protein 7.15 Albumin 4.41 Globulin 2.74 Albumin/Globulin Ratio 1.60 Orders Category Date Time Status EKG-(ED ONLY) Stat CARDIO 01/08/19 03:13 Completed ED IV/MEDIPORT/POWERPORT .ONCE EMERGENCY 01/08/19 03:22 Active Orthostatic [ED ORTHOSTATIC VITAL SIGNS] .ONCE EMERGENCY 01/08/19 03:12 Active CBC W/ AUTO DIFF Stat LAB 01/08/19 03:20 Completed COMPREHENSIVE METABOLIC PANEL Stat LAB 01/08/19 03:20 Completed CREATINE KINASE Stat LAB 01/08/19 03:20 Completed TROPONIN I Stat LAB 01/08/19 03:20 Completed 0.9 % Sodium Chloride [Saline Flush] MEDS 01/08/19 03:22 Discontinued 1 syr IVF PRN PRN Acetaminophen [Tylenol] MEDS 01/08/19 03:22 Discontinued 1,000 mg PO ONCE STA Ringers Lactated Solution [Lactated Ringers] 1,000 ml MEDS 01/08/19 03:[address] HEAD W/O CONTRAST Stat RADS 01/08/19 03:13 Completed Medications Discontinued Medications Generic Name Dose Route Start Last Admin Trade Name Freq PRN Reason Stop Dose Admin Acetaminophen 1,000 mg 01/08/19 03:22 01/08/19 03:57 Tylenol PO 01/08/19 03:23 1,000 mg ONCE STA Administration Lactated Ringer's 1,000 mls @ 1,000 mls/hr 01/08/19 03:22 01/08/19 03:57 Lactated Ringers IV 01/08/19 04:21 1,000 mls/hr BOLUS STA Administration Sodium Chloride 1 syr 01/08/19 03:22 01/08/19 03:57 Saline Flush IVF 1 syr PRN PRN Administration To flush IV Vital Signs: Temp Pulse Resp BP Pulse Ox 01/08/19 03:29 73 163/82 H 01/08/19 03:28 72 159/98 H 01/08/19 03:27 69 160/85 H 01/08/19 02:52 98.3 F 73 20 162/92 H 97 Departure - Departure Time of Disposition: 03:20 Disposition: HOME SELF-CARE Discharge Problem: Syncope Headache Qualifiers: Headache type: tension-type Headache chronicity pattern: acute headache Intractability: not intractable Qualified Code(s): G44.209 - Tension-type headache, unspecified, not intractable Instructions: Tension Headache (ED), Syncope (ED) Condition: Stable Pt referred to PMD for follow-up: Yes IPMP verified?: No Additional Instructions: Take over the counter Tylenol or Motrin as needed for headache Follow up with PCP in 3-5 days Push fluids, Rest Allergies/Adverse Reactions: Allergies lisinopril Adverse Reaction (Unverified 12/29/18 16:33) cough
[2019-01-08 03:39] VITALS: BP 163/82
[2019-01-08] MEDS: LACTATED RINGERS 1,000 ML IV STA (03:57)
[2019-01-08] MEDS: TYLENOL PO STA (03:57)
--- NOTE | 2019-01-08 07:00 | CT ---
EXAM: CT head without contrast 01/08/2019. Sagittal and coronal reformatted images obtained HISTORY: Syncope COMPARISON: 04/21/2018 FINDINGS: There is no evidence of intracranial hemorrhage. The midline is maintained. There is no h ydrocephalus. Chronic small vessel ischemic change. No cerebellar tonsillar ectopia. Evaluation of the calvarium shows no fracture. The mastoid air cells are normally pneumatized. IMPRESSION: No acute intracranial abnormality.
== END 2019-01-08 04:48 | disposition home or self-care (01) ==
LOC: ED 02:50
DX: R55 Syncope and collapse (principal); R42 Dizziness and giddiness; F41.9 Anxiety disorder, unspecified; G44.209 Tension-type headache, unspecified, not intractable
CPT/HCPCS: 36415; 80053; 82550; 82553; 84484; 85025; 93005; 93010; 96360; 99283

== ENCOUNTER 2019-01-22 13:00 | Outpatient (RCR) ==
--- NOTE | 2018-12-29 11:00 | RS.OPPTEV2 ---
Date of Note: 12/26/18 Visit #: 1 Number of visits approved by Insurance: pending Date of Evaluation: 12/26/18 Payer Source: Medicaid Surgery Performed?: No Treatment Diagnosis: chronic R SI joint pain History of Condition/Mechanism of Injury:: Reports having long history of LBP with pain radiating occasionally into LLE. No definite injury noted. 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 Functional Limitations: Sleep, Pulling, Lifting, Carrying, Standing, Squatting, Ambulation Current Subjective/complaints:: pt states she has been dealing with low back pain for quite some time. States she is awaiting bilateral carpal tunnel surgery. pt also reports MD found mass on thyroid and she has an appt on . pt also reports she is having injection in back per pain management at [facility] on 12/27/18. Treatment Side (optional): N/A *Precautions: n/a Medical History Medical History: Arthritis Medical History Comments:: anxiety Surgical History: Cholecystectomy, Hysterectomy Smoking Status: Former smoker Hx Home Medications: pt did not bring list of home medications. Patient's Goals: decrease low back pain Pain Assessment - Pain Description Pain Location: low back with increased pain on R SI Pain Description: Sharp, Aching Current Pain Intensity: 8 Worst Pain Intensity: 10 Other Comments regarding Pain:: pain increases with standing and ROM. Functional Outcome Measure Oswestry LBP: 36 - G Codes & Severity Modifier G Codes & Modifier: n/a Source of G Code score: n/a Observation - Observation Posture: Forward Head, Rounded Shoulders, Decreased Lumbar Lordosis Handedness: Right Gait - Gait Pattern General Gait Pattern Observation: No Deviations/Normal General Range of Motion: BUE WFL's (slight stiffness L shld). BLE WFL's Muscle Strength: BUE 5/5. RLE 5/5, LLE hip flex 4/5, knee flex/ext 4/5, ankle DF/PF 4+/5 - ROM Lumbar Flexion: Hand reach to patellae Sidebending to Left: Reach to Lateral Joint Line Sidebending to Right: Reach to Lateral Joint Line Lumbar Spine ROM Limitations: Soft Tissue Tightness, Muscle Weakness, Pain - Strength Trunk Extension: 4- Good- Trunk Flexion: 4- Good- Trunk Lateral Flexion: 4- Good- Trunk Rotation: 4- Good- - Special Tests MARTY Test: Positive Left, Positive Right SLR Test: Positive Left Seated Dural Stretch Test: Negative Left, Negative Right SI Joint Compression: Positive SI Joint Distraction: Negative Palpation Palpation Findings: Tenderness, Trigger Point, Muscle Guarding Comments:: pt presents with tenderness across lumbar spine with area of muscle guarding on R lower lumbar/sacral area, with trigger point proximal to R SI. Sensation - Sensation Right Upper Extremity: Intact/Normal Left Upper Extremity: Intact/Normal Right Lower Extremity: Intact/Normal Left Lower Extremity: Intact/Normal Comments: reports occasionally numbness and tingling in LLE. Balance - Sitting Balance Static Sitting Balance: Normal Dynamic Sitting Balance: Normal - Standing Balance Static Standing Balance: Good Dynamic Standing Balance: Good - Treatment Modality: Electrical Stim Unattended Parameters/Method Applied: IFC x 20 mins at 9ma Treatment Area: R lumbar sacral area. Patient Position: Prone - Heat/Cryotherapy Treatment: Hot Pack Comments:: with IFC to lumbar area. Interventions - Exercise/Activities/Manual Therapy Exercises/Activities: pt performed prone lying as well as prone on elbows, piriformis stretch, as well as gentle hamstring stretch. Manual Therapy: na HOME EXERCISE PROGRAM: pt given written HEP including prone, prone on elbows, piriformis stretch, hamstring stretch. - Charges Timed Code Treatment Minutes: 38 Total Treatment Time: 59 Procedures billed for this date of service:: eval low, estim unattended, hot pack EVALUATION COMPLEXITY LEVEL EVALUATION COMPLEXITY LEVEL: HISTORY: Low, EXAM OF BODY SYSTEMS: Low, CLINICAL PRESENTATION: Low, CLINICAL DECISION MAKING: Low Assessment Assessment: pt presents with chronic low back pain with increased pain in area of R SI. pt also presents with decreased lumbar ROM, muscle tightness, and decreased strength as well as occasional radicular symptoms into LLE. Feel pt would benefit from skilled PT for therex for gentle stretching, strengthening ( focus on core strengthening) and modalities to decrease pain. Patient Education: Home Exercise Program, Education of Plan of Care Rehab Potential: Good Short Term Goals Goal #1: pt independent with initial HEP Goal to be met by: 01/09/19 Goal #2: pt report decreased pain lumbar/sacral area < 8 Goal to be met by: 01/09/19 Goal #3: Improve flexibility B hamstring and piriformis Goal to be met by: 01/09/19 Goal #4: Improve LLE strength 4+/5 Goal to be met by: 01/09/19 Production Finisher Goals Goal #1: pt report increased ability to perform normal daily activities w less pain Goal to be met by: 01/23/19 Goal #2: pt with no reports of radicular symptoms in LE Goal to be met by: 01/23/19 Goal #3: pt report pain < 6/10 lumbar/sacral area Goal to be met by: 01/23/19 Plan - Treatment to be Provided Procedures: Therapeutic Exercises, Therapeutic Activity, Manual Therapy, Massage , Patient Education Modalities: Electrical Stimulation, Cryotherapy, Hot Packs, Mechanical Traction - Treatment Plan Frequency: 2 X week Duration: 4 weeks Dates of Halfway Goals: 01/23/19 Expiration date of current Insurance Approval:: pending - Treatment Code (1) SI (sacroiliac) joint dysfunction Code(s): M53.3 - SACROCOCCYGEAL DISORDERS, NOT ELSEWHERE CLASSIFIED (2) Low back pain potentially associated with radiculopathy Code(s): M54.5 - LOW BACK PAIN (3) Muscle tightness Code(s): M62.89 - OTHER SPECIFIED DISORDERS OF MUSCLE (4) Muscle weakness Code(s): M62.81 - MUSCLE WEAKNESS (GENERALIZED)
--- NOTE | 2019-01-06 15:18 | RS.OPPTDN ---
Subjective Date of Note: 01/06/19 Visit #: 2 Number of visits approved by Insurance: pending Date of Evaluation: 12/26/18 Payer Source: Medicaid Treatment Diagnosis: chronic R SI joint pain Current Subjective/complaints:: Patient reports the injection gave her relief , but the past 3-4 days her pain has gradually increased. *Precautions: n/a Pain Assessment - Pain Description Pain Location: lumbar /hips Pain Description: Radiating, Dull, Aching Current Pain Intensity: 5/10 - Treatment Modality: Electrical Stim Unattended Parameters/Method Applied: 20 mins. IFC to lumbar @ 13 ma. Patient Position: Prone - Heat/Cryotherapy Treatment: Hot Pack (concurrent with e-stim) Interventions - Exercise/Activities/Manual Therapy Exercises/Activities: 35 mins. total of exercise and patient education , including prone on elbows,supine pelvic tilts,SKTC,DKTC,90/90 hams. stretches, piriformis stretches.LTR in hooklying. Total minutes of Exercise: 35 Manual Therapy: na Total minutes of Manual Therapy: 0 HOME EXERCISE PROGRAM: pt given written HEP including prone, prone on elbows, piriformis stretch, hamstring stretch. - Charges Timed Code Treatment Minutes: 35 Total Treatment Time: 55 Procedures billed for this date of service:: hp,e-stim,ex 2 Assessment: Patient reports moderate pain with end range of stretches today.She has moderate tightness in the piriformis /IT band ,pain elevates in lumbar when LE's cross mid-line.She has minimal tightness in the hamstrings. Patient Education: Education of diagnosis, Body/Joint mechanics, Home Exercise Program, Home Safety, Activity Modification, Education of Plan of Care Short Term Goals Goal #1: pt independent with initial HEP Goal to be met by: 01/09/19 Progress towards Goal:: Progressing Goal #2: pt report decreased pain lumbar/sacral area < 8 Goal to be met by: 01/09/19 Progress towards Goal:: Progressing Goal #3: Improve flexibility B hamstring and piriformis Goal to be met by: 01/09/19 Progress towards Goal:: Progressing Goal #4: Improve LLE strength 4+/5 Goal to be met by: 01/09/19 Mcfp Goals Goal #1: pt report increased ability to perform normal daily activities w less pain Goal to be met by: 01/23/19 Goal #2: pt with no reports of radicular symptoms in LE Goal to be met by: 01/23/19 Goal #3: pt report pain < 6/10 lumbar/sacral area Goal to be met by: 01/23/19 Plan Dates of Family Lawyer Goals: 01/23/19 Expiration date of current Insurance Approval:: pending PLAN: Cont. skilled PT to reduce/eliminate LBP/sciatica.
--- NOTE | 2019-01-08 12:49 | RS.CXNS ---
Date of scheduled appointment: 01/08/19 Type: Rescheduled Reason for Cancel/NS: Patient reportsbeing in the ER last night ,elevated BP.She cancelled today ,has appts. next week.
--- NOTE | 2019-01-13 15:07 | RS.OPPTDN ---
Subjective Date of Note: 01/13/19 Visit #: 3 Number of visits approved by Insurance: pending Date of Evaluation: 12/26/18 Payer Source: Medicaid Treatment Diagnosis: chronic R SI joint pain Current Subjective/complaints:: Patient reports she has been in the hospital due to problems with high blood pressure. States she is working initial HEP. She continues to have pain at the right S-I joint with occasional numbness at the left lat hip joint. *Precautions: n/a Pain Assessment - Pain Description Pain Location: bilateral S-I joints, R > L Current Pain Intensity: 5/10, 2-3/10 following treatment - Treatment Modality: Electrical Stim Unattended Parameters/Method Applied: [id number] HVGC to 205p.v. with 4 large pads to the bilateral S-I joints and lower lumbar paraspinals with HP. Patient Position: Prone - Heat/Cryotherapy Treatment: Hot Pack (with Estim ) Interventions - Exercise/Activities/Manual Therapy Exercises/Activities: 28mins exercise and patient education. Assisted stretching of the bialteral hamstrings, SKTC, piriformis, and LTR. Pelvic tilts. MET of isometric right hip ext, then isometric right hip ext with isometric right hip flex. Bridging. Patient education of dx, pelvic mechanics, and benefits of MET. Total minutes of Exercise: 28mins Manual Therapy: na HOME EXERCISE PROGRAM: pt given written HEP including prone, prone on elbows, piriformis stretch, hamstring stretch. Isometric hip ext on right. Bridging. - Charges Timed Code Treatment Minutes: 28mins Total Treatment Time: 48mins Procedures billed for this date of service:: HP, Estim unattended, EX2 Assessment: Patient attentive to patient education and appears motivated to work on HEP. Patient Education: Education of diagnosis, Body/Joint mechanics, Home Exercise Program, Activity Modification Comments: Pt advised to avoid prone extension exercises at this time. Patient demonstrates compliance with HEP?: Yes Short Term Goals Goal #1: pt independent with initial HEP Goal to be met by: 01/09/19 Progress towards Goal:: Progressing Goal #2: pt report decreased pain lumbar/sacral area < 8 Goal to be met by: 01/09/19 Progress towards Goal:: Progressing Goal #3: Improve flexibility B hamstring and piriformis Goal to be met by: 01/09/19 Progress towards Goal:: Progressing Goal #4: Improve LLE strength 4+/5 Goal to be met by: 01/09/19 Aquatic Ecologist Goals Goal #1: pt report increased ability to perform normal daily activities w less pain Goal to be met by: 01/23/19 Goal #2: pt with no reports of radicular symptoms in LE Goal to be met by: 01/23/19 Goal #3: pt report pain < 6/10 lumbar/sacral area Goal to be met by: 01/23/19 Plan Dates of Aquatic Ecologist Goals: 01/23/19 Expiration date of current Insurance Approval:: 01/23/19 PLAN: Continue modalities and progress exercise to reduce pain and increase functional activity level.
--- NOTE | 2019-01-15 15:21 | RS.OPPTDN ---
Subjective Date of Note: 01/15/19 Visit #: 4 Number of visits approved by Insurance: pending Date of Evaluation: 12/26/18 Payer Source: Medicaid Treatment Diagnosis: chronic R SI joint pain Current Subjective/complaints:: Patient reports she had a follow-up with physician and is being scheduled for another S-I joint injection on January 30. *Precautions: n/a Pain Assessment - Pain Description Pain Location: right S-I joint and lowback Current Pain Intensity: mild, mod at night - Treatment Modality: Electrical Stim Unattended Parameters/Method Applied: [id number] HVGC to 140p.v. with 4 pads to the right S-I and across lower lumbar paraspinals with HP prior to EX. Patient Position: Prone - Heat/Cryotherapy Treatment: Hot Pack (with Estim ) Interventions - Exercise/Activities/Manual Therapy Exercises/Activities: 24mins. prone lying hip IR and ER stretching with knee flexed to 90 degrees. Yellow theraband resisted hip IR and ER rotation. Supine for assisted hamstring, SKTC, and piriformis stretching. Isometric hip flexion, alt sets of 5reps. Pelvic tilts and bridging. Total minutes of Exercise: 24mins Manual Therapy: na HOME EXERCISE PROGRAM: pt given written HEP including prone, prone on elbows, piriformis stretch, hamstring stretch. Isometric hip ext on right. Bridging. Yellow theraband resisted hip IR and ER in prone and knees flexed to 90 degrees. - Charges Timed Code Treatment Minutes: 24mins Total Treatment Time: 48mins Procedures billed for this date of service:: HP, Estim unattended, EX2 Assessment: Patient responding well to treatment and reporting decreased pain. Patient Education: Body/Joint mechanics, Home Exercise Program Patient demonstrates compliance with HEP?: Yes Short Term Goals Goal #1: pt independent with initial HEP Goal to be met by: 01/09/19 Progress towards Goal:: Met Goal #2: pt report decreased pain lumbar/sacral area < 8 Goal to be met by: 01/09/19 Progress towards Goal:: Progressing Goal #3: Improve flexibility B hamstring and piriformis Goal to be met by: 01/09/19 Progress towards Goal:: Progressing Goal #4: Improve LLE strength 4+/5 Goal to be met by: 01/09/19 Computer Support Specialist Goals Goal #1: pt report increased ability to perform normal daily activities w less pain Goal to be met by: 01/23/19 Goal #2: pt with no reports of radicular symptoms in LE Goal to be met by: 01/23/19 Goal #3: pt report pain < 6/10 lumbar/sacral area Goal to be met by: 01/23/19 Plan Dates of Fci Goals: 01/23/19 Expiration date of current Insurance Approval:: 01/23/19 PLAN: Continue modalities and progress exercise as tolerated.
--- NOTE | 2019-01-20 14:06 | RS.OPPTDN ---
Subjective Date of Note: 01/20/19 Visit #: 5 Number of visits approved by Insurance: pending Date of Evaluation: 12/26/18 Payer Source: Medicaid Treatment Diagnosis: chronic R SI joint pain Current Subjective/complaints:: Patient reports the pain continues to vary , dependent upon her amount of daily activity. *Precautions: n/a Pain Assessment - Pain Description Pain Location: R SI Pain Description: Dull, Aching, Chronic Current Pain Intensity: 6/10 - Treatment Modality: Electrical Stim Unattended Parameters/Method Applied: 20 mins. high volt ,2 large electrodes to the lateral borders of the SI joint @ 250 pv. Patient Position: Prone - Heat/Cryotherapy Treatment: Hot Pack (concurrent with e-stim) Interventions - Exercise/Activities/Manual Therapy Exercises/Activities: 35 mins. prone on elbows,then supine stretching of 90/90 hamstring,pelvic tilts,active bridging ,resisted hip flex/resisted knee extension ,SI energy exercises. Total minutes of Exercise: 35 Manual Therapy: na Total minutes of Manual Therapy: 0 HOME EXERCISE PROGRAM: pt given written HEP including prone, prone on elbows, piriformis stretch, hamstring stretch. Isometric hip ext on right. Bridging. Yellow theraband resisted hip IR and ER in prone and knees flexed to 90 degrees. - Charges Timed Code Treatment Minutes: 35 Total Treatment Time: 55 Procedures billed for this date of service:: hp,e-stim,ex 2 Assessment: Patient has met goal for hamstring extensibility.She reports morerelief today with extension of lumbar spine ,as opposed to flexion. Patient Education: Education of diagnosis, Body/Joint mechanics, Home Exercise Program, Home Safety, Activity Modification, Education of Plan of Care Patient demonstrates compliance with HEP?: Yes Short Term Goals Goal #1: pt independent with initial HEP Goal to be met by: 01/09/19 Progress towards Goal:: Met Goal #2: pt report decreased pain lumbar/sacral area < 8 Goal to be met by: 01/09/19 Progress towards Goal:: Partially Met (6 today ,but still varies) Goal #3: Improve flexibility B hamstring and piriformis Goal to be met by: 01/09/19 Progress towards Goal:: Partially Met (hamstring goal met) Goal #4: Improve LLE strength 4+/5 Goal to be met by: 01/09/19 Progress towards Goal:: Progressing Network Operations Project Manager Goals Goal #1: pt report increased ability to perform normal daily activities w less pain Goal to be met by: 01/23/19 Progress towards goal: No Change (pain elevates the longer she is up) Goal #2: pt with no reports of radicular symptoms in LE Goal to be met by: 01/23/19 Progress towards goal: Progressing (no radiculopathy today) Goal #3: pt report pain < 6/10 lumbar/sacral area Goal to be met by: 01/23/19 Progress towards goal: Progressing Plan Dates of Network Operations Project Manager Goals: 01/23/19 Expiration date of current Insurance Approval:: pending PLAN: Cont. skilled PT to reduce /eliminate lumbar pain.
--- NOTE | 2019-01-22 13:35 | RS.OPPTDN ---
Subjective Date of Note: 01/22/19 Visit #: 6 Number of visits approved by Insurance: pending Date of Evaluation: 12/26/18 Payer Source: Medicaid Treatment Diagnosis: chronic R SI joint pain Current Subjective/complaints:: Patient reports elevated pain today,feels this is possibly due to rainy weather.She reports temporary relief from therapy sessions.She understands the D/C plan today due to no significant improvement. *Precautions: n/a Pain Assessment - Pain Description Pain Location: R SI / lumbar Pain Description: Dull, Aching Current Pain Intensity: 8 - Treatment Modality: Electrical Stim Unattended Parameters/Method Applied: 20 mins. high volt,to lumbar @ 255pv ,2 large electrodes. Patient Position: Prone - Heat/Cryotherapy Treatment: Hot Pack (concurrent with e-stim) Interventions - Exercise/Activities/Manual Therapy Exercises/Activities: 20 mins. HEP review and return demo of each exercise.VALDEZ, supine SKTC,pelvic tilts,90/90 hamstring stretches,piriformis stretches,SI muscle energy . Total minutes of Exercise: 20 Manual Therapy: na Total minutes of Manual Therapy: 0 HOME EXERCISE PROGRAM: pt given written HEP including prone, prone on elbows, piriformis stretch, hamstring stretch. Isometric hip ext on right. Bridging. Yellow theraband resisted hip IR and ER in prone and knees flexed to 90 degrees. - Charges Timed Code Treatment Minutes: 20 Total Treatment Time: 55 Procedures billed for this date of service:: hp,e-stim,ex ,ther. act. Assessment: Patient is aware of D/C plan today due to no significant progress, reports temporary relief only.She has good understanding of HEP,She plans to have in jections for pain control. Patient Education: Body/Joint mechanics, Home Exercise Program, Home Safety, Education of Plan of Care Patient demonstrates compliance with HEP?: Yes Short Term Goals Goal #1: pt independent with initial HEP Goal to be met by: 01/09/19 Progress towards Goal:: Met Goal #2: pt report decreased pain lumbar/sacral area < 8 Goal to be met by: 01/09/19 (8 today) Progress towards Goal:: Regressing (6 today ,but still varies) Goal #3: Improve flexibility B hamstring and piriformis Goal to be met by: 01/09/19 Progress towards Goal:: Partially Met (hamstring goal met) Goal #4: Improve LLE strength 4+/5 Goal to be met by: 01/09/19 Progress towards Goal:: Met Yard Loader Operator Goals Goal #1: pt report increased ability to perform normal daily activities w less pain Goal to be met by: 01/23/19 Progress towards goal: No Change (pain elevates the longer she is up) Goal #2: pt with no reports of radicular symptoms in LE Goal to be met by: 01/23/19 Progress towards goal: Met (no radiculopathy today) Goal #3: pt report pain < 6/10 lumbar/sacral area Goal to be met by: 01/23/19 (8/10) Progress towards goal: Regressing Plan Dates of Halfway Goals: 01/23/19 Expiration date of current Insurance Approval:: pending PLAN: D/C due to no significant change,has good understanding of HEP.
--- NOTE | 2019-01-22 14:01 | RS.QUICKDC ---
Discharge from PT Date of Discharge: 01/22/19 Number of Visits: 6 Reason for Discharge: No progress made.
== END 2019-01-23 23:59 ==
PROVIDERS: ATTEND Orthopaedic Surgery Pediatric Orthopaedic Surgery
DX: M53.3 Sacrococcygeal disorders, not elsewhere classified (principal)

== ENCOUNTER 2019-02-27 02:46 | Emergency (ER) ==
[2019-02-27 02:56] VITALS: BP 173/87; TEMP 98.7; BMI 38.0
[2019-02-27] MEDS ORDERED: SODIUM CHLORIDE 1,000 ML IV STA (03:05)
[2019-02-27] MEDS ORDERED: NORFLEX IM STA (03:06)
[2019-02-27] MEDS ORDERED: TORADOL IVP STA (03:06)
--- NOTE | 2019-02-27 05:22 | CT ---
EXAM: CT soft tissue neck without and with intravenous contrast 02/27/2019. Sagittal and coronal re formatted images obtained HISTORY: Posterior neck pain and swelling. COMPARISON: 12/02/2018 FINDINGS: The nasopharynx shows no acute process. The oropharynx appears patent and within the midl ine. There is mild soft tissue prominence of the palatine and lingual tonsils. This could be infect ious/inflammatory. Correlate clinically. No dominant mass or fluid collection. No abscess. The laryngeal airway is patent and within the midline. The visualized portion of the trachea is unre markable. Pulmonary apices are unremarkable No dominant mass or fluid collection. Reactive appearing cervical lymphadenopathy is present. This is most prominent along the jugular chains. Multinodular enlargement of the right lobe of the thyroid gland. On coronal series image 25 the area of mass-like enlargement measures approximately 4.8 x 2.5 cm meter. No acute osseous abnormality of the cervical spine. IMPRESSION: 1. Reactive appearing cervical lymphadenopathy. No dominant mass or fluid collection. 2. Mild soft tissue prominence at the level of the palatine tonsils. This could be infectious/infla mmatory. Correlate clinically. 2. Multinodular mass-like enlargement of the right lobe of the thyroid gland. Reference images and measurements above.
--- NOTE | 2019-02-27 06:12 | ED.PDOC ---
General ED Provider: Dr. JASIEL LYNCH-ER Chief Complaint: Neck Pain Non-Injury Stated Complaint: the back of my neck is stiff and hurts to move Time Seen by Physician: 03:00 Mode of Arrival: Walk-In Information Source: Patient Exam Limitations: No limitations Primary Care Provider: GELY PATEL Nursing and Triage Documentation Reviewed and Agree: Yes Does patient meet sepsis criteria?: No System Inflammatory Response Syndrome: Not Applicable Sepsis Protocol: For patient's 13 years and over: Temp is 96.8 and below OR 101 and greater Pulse >90 BPM Resp >20/minute Acutely Altered Mental Status Are patient's symptoms suggestive of a new infection, such as: -Pneumonia -Skin, Soft Tissue -Endocarditis -UTI -Bone, Joint Infection -Implantable Device -Acute Abdominal Infection -Wound Infection -Meningitis -Blood Stream Catheter Infection -Unknown Musculoskeletal Complaint Exam - Neck Pain Complaint/Exam Mechanism of Injury: Reports: No known trauma Onset/Duration: 2 days Symptoms Are: Still present Timing: Constant Initial Severity: Mild Current Severity: Moderate Location: Reports: Discrete (right posterior neck) Character: Reports: Dull, Aching, Spasmodic, Stiffness Aggravating: Reports: Position Associated Signs and Symptoms: Denies: Swelling, Redness, Bruising, Fever, Nuchal rigidity, Weakness, Headache, Paresthesia Carotid Bruit Present: No Pain on Passive Flexion: Yes Positive Kernig's Sign: No ROM Limited In: Present: Flexion, Extension, Right Pain Located at: right posterior neck Tenderness: Present: Paraspinal Focal Weakness: Present: None Focal Sensory Loss: Reports: None Differential Diagnoses: Dystonia, Neoplasm, Sprain, Strain Review of Systems - Review Of Systems Constitutional: Reports: No symptoms Eyes: Reports: No symptoms Ears, Nose, Mouth, Throat: Reports: No symptoms Respiratory: Reports: No symptoms Cardiac: Reports: No symptoms GI: Reports: No symptoms : Reports: No symptoms Musculoskeletal: Reports: Muscle pain, Neck pain Skin: Reports: No symptoms Neurological: Reports: No symptoms Endocrine: Reports: No symptoms Hematologic/Lymphatic: Reports: No symptoms All Other Systems: Reviewed and Negative Past Medical History - Past Medical History Previously Healthy: Yes Endocrine: Reports: None, Hypothyroid Cardiovascular: Reports: Hypertension Respiratory: Reports: None Hematological: Reports: None Gastrointestinal: Reports: None Genitourinary: Reports: None Neuro/Psych: Reports: Anxiety Musculoskeletal: Reports: None Cancer: Reports: None Last Menstrual Period: PT HAS HAD A HYSTERECTOMY Other Pertinent Past Medical History: obesity - Surgical History General Surgical History: Reports: Hysterectomy, Cholecystectomy - Family History Family History: Reports: Unknown - Social History Smoking Status: Current every day smoker, Heavy tobacco smoker Hx Substance Use: No Alcohol Screening: None - Immunizations Tetanus Shot up to Date: Yes Physical Exam - Physical Exam Appearance: Well-appearing, No pain distress, Well-nourished Pain Distress: Mild Eyes: WIN, EOMI, Conjunctiva clear ENT: Ears normal, Nose normal, Oropharynx normal Neck: Supple Respiratory: Airway patent Cardiovascular: RRR, Pulses normal, No rub, No murmur GI/: Soft, Nontender, No masses, Bowel sounds normal, No Organomegaly Musculoskeletal: Limited ROM Skin: Warm, Dry, Normal color Neurological: Sensation intact, Motor intact, Reflexes intact, Cranial nerves intact, Alert, Oriented Psychiatric: Affect appropriate Interpretation - Radiology Interpretation Radiology Interpretation By: Radiologist Radiology Results: Positive Exam Interpreted: CT Scan Re-Evaluation - Re-Evaluation Time of Re-Evaluation: 06:12 Status: Improved Vital Signs Stable: Yes Pain Level: 0 Appearance: NAD Lungs: Clear Skin: Warm and Dry Neuro: Alert and Oriented X3 CV: RRR Critical Care Note - Critical Care Note Total Time (mins): 0 Course - Course Hematology/Chemistry: 02/27/19 03:22 02/27/19 03:22 Orders, Labs, Meds: Lab Review 02/27/19 02/27/19 03:22 03:22 WBC 9.73 RBC 5.00 Hgb 15.2 Hct 44.5 MCV 89.0 MCH 30.4 MCHC 34.2 RDW Coeff of Jeffrey 13.2 Plt Count 235 Immature Gran % (Auto) 0.5 Neut % (Auto) 62.2 Lymph % (Auto) 25.1 Gonzales % (Auto) 9.2 Eos % (Auto) 2.4 Baso % (Auto) 0.6 Immature Gran # (Auto) 0.1 Neut # (Auto) 6.1 Lymph # (Auto) 2.4 Gonzales # (Auto) 0.9 Eos # (Auto) 0.2 Baso # (Auto) 0.1 ESR 20 Sodium 140.4 Potassium 3.72 Chloride 102.3 Carbon Dioxide 28.3 Anion Gap 13.52 BUN 11.6 Creatinine 0.99 Estimated GFR (MDRD) 60.00 BUN/Creatinine Ratio 11.71 Glucose 117.7 H Calcium 8.89 Total Bilirubin 0.55 AST 24.2 ALT 30.7 Alkaline Phosphatase 71.3 Total Protein 7.33 Albumin 4.29 Globulin 3.04 Albumin/Globulin Ratio 1.41 Orders Category Date Time Status NPO REMINDER: IMAGING ONCE CARE 02/27/19 03:04 Completed ED IV/MEDIPORT/POWERPORT .ONCE EMERGENCY 02/27/19 03:03 Active CBC W/ AUTO DIFF Stat LAB 02/27/19 03:22 Completed COMPREHENSIVE METABOLIC PANEL Stat LAB 02/27/19 03:22 Completed ESR Stat LAB 02/27/19 03:22 Completed 0.9 % Sodium Chloride [Saline Flush] MEDS 02/27/19 03:03 Ordered 1 syr IVF PRN PRN Ketorolac Tromethamine [Toradol] MEDS 02/27/19 03:06 Discontinued 30 mg IVP ONCE STA Orphenadrine Citrate [Norflex] MEDS 02/27/19 03:06 Discontinued 60 mg IM ONCE STA Sodium Chloride 0.9% [Sodium Chloride] 1,000 ml MEDS 02/27/19 03:05 Active IV 100 mls/hr CT SOFT TISSUE NECK W/WO CONT Stat RADS 02/27/19 03:04 Completed Medications Generic Name Dose Route Start Last Admin Trade Name Freq PRN Reason Stop Dose Admin Sodium Chloride 1,000 mls @ 100 mls/hr 02/27/19 03:05 02/27/19 03:36 Sodium Chloride IV 02/27/19 13:04 100 mls/hr .Q10H STA Administration Sodium Chloride 1 syr 02/27/19 03:03 02/27/19 03:41 Saline Flush IVF 1 syr PRN PRN Administration To flush IV Discontinued Medications Generic Name Dose Route Start Last Admin Trade Name Freq PRN Reason Stop Dose Admin Ketorolac Tromethamine 30 mg 02/27/19 03:06 02/27/19 03:39 Toradol IVP 02/27/19 03:07 30 mg ONCE STA Administration Orphenadrine Citrate 60 mg 02/27/19 03:06 02/27/19 03:47 Norflex IM 02/27/19 03:07 60 mg ONCE STA Administration Vital Signs: Temp Pulse Resp BP Pulse Ox 02/27/19 02:47 98.7 F 80 18 173/87 H 95 Departure - Departure Time of Disposition: 06:12 Disposition: HOME SELF-CARE Discharge Problem: Muscle spasm Instructions: Muscle Spasm (ED) Condition: Good Pt referred to PMD for follow-up: Yes IPMP verified?: No Additional Instructions: keep appt with dr kelley next saturday--heat alt ice Allergies/Adverse Reactions: Allergies lisinopril Adverse Reaction (Verified 02/27/19 02:56) cough Home Medications: Ambulatory Orders Fluticasone Propionate [Flonase Allergy Relief] 2 inh NS DAILY PRN 02/27/19 Ketorolac Tromethamine [Toradol] 10 mg PO Q6H #14 tablet 02/27/19 Orphenadrine Citrate [Norflex] 100 mg PO Q12H #14 tablet.er 02/27/19 Disposition Discussed With: Patient, Family
== END 2019-02-27 06:33 | disposition home or self-care (01) ==
LOC: ED 02:46
DX: M62.838 Other muscle spasm (principal); M54.2 Cervicalgia; M43.6 Torticollis; F17.210 Nicotine dependence, cigarettes, uncomplicated; I10 Essential (primary) hypertension; E03.9 Hypothyroidism, unspecified
CPT/HCPCS: 36415; 80053; 85025; 85651; 96361; 96372; 96374; 99283

== ENCOUNTER 2019-04-21 08:41 | Outpatient (CLI) | END 2019-04-21 08:42 | disposition home or self-care (01) | LOC: RHC-LAB 08:41 | PROVIDERS: ATTEND Nurse Practitioner Family | DX: E78.1 Pure hyperglyceridemia (principal); I10 Essential (primary) hypertension | CPT/HCPCS: 36415; 80053; 80061 ==